=== PATIENT | female | born 1965 ===

== ENCOUNTER 2020-09-17 06:59 | Outpatient (REF) | payer OTHER, SELFPAY ==
[2020-09-17 07:25] LABS: Hematocrit 45.1 % (37-47); Hemoglobin 14.6 g/dl (12.0-16.0); Mean Corpuscular HGB Conc 32.4 g/dl (31.0-35.0); Mean Corpuscular Volume 89.7 fL (80-98); Mean Platelet Volume 8.9 fL (9.4-12.3); Platelet Count 337 X10*3/uL (160-400); Red Blood Count 5.03 X10*6/uL (4.20-5.50); Red Cell Distribution Width 12.5 % (11.0-16.0); White Blood Count 9.1 X10*3/uL (4.8-10.8)
[2020-09-17 07:45] LABS: Alanine Aminotransferase 26 U/L (0-31); Albumin Level 4.1 g/dL (3.5-5.0); Alkaline Phosphatase 63 U/L (39-117); Anion Gap 12 (12-20); Aspartate Amino Transferase 21 U/L (5-31); Bilirubin Total 0.5 mg/dL (0.0-1.0); Blood Urea Nitrogen 9 mg/dL (9-16); Calcium 9.2 mg/dL (8.4-10.2); Carbon Dioxide 27 mmol/L (22-29); Chloride 106 mmol/L (96-108); Cholesterol 166 mg/dL; Estimated Glomerular Filt Rate > 60; Glucose Fasting 89 mg/dL (60-99); HDL Cholesterol 50 mg/dL; LDL Cholesterol Calculated 100 mg/dl; Potassium 4.3 mmol/l (3.3-5.1); Sodium 141 mmol/L (135-145); Total Protein 6.9 g/dL (6.5-8.0); Triglycerides 83 mg/dL
== END 2020-09-17 07:00 | disposition home or self-care (01) ==
LOC: HO.LAB 06:59
PROVIDERS: Visit Provider Internal Medicine
DX: J30.9 Allergic rhinitis, unspecified (principal); E78.5 Hyperlipidemia, unspecified
CPT/HCPCS: 36415; 80053; 80061; 85027

== ENCOUNTER 2020-12-03 12:56 | Outpatient (REF) | payer OTHER, SELFPAY ==
--- NOTE | ~2020-12-03 | MM_ITS ---
EXAMINATION: BONE DENSITOMETRY CLINICAL INDICATION: Asymptomatic menopausal state. COMPARISON: None (current study represents initial baseline exam). TECHNIQUE: Using a eventblimp DXA System (software version: 13.1) manufactured by [employer], dual-energy x-ray absorptiometry was performed of the lumbar spine and left hip. The images are of good technical quality. Summary results are attached. FINDINGS: AP SPINE L1-L2 (excluding L3 and L4): The data of L1-L4 has been changed to exclude the L3 and L4 vertebral bodies, because degenerative changes at these levels may cause overestimation of lumbar spine density. BMD 1.272 g/cm2, Z-score 1.3, T-score 0.9, normal. LEFT FEMUR, NECK: BMD 1.065 g/cm2, Z-score 0.9, T-score 0.2, normal. LEFT FEMUR, TOTAL: BMD 1.116 g/cm2, Z-score 1.2, T-score 0.9, normal. IDENTIFIED RISK FACTORS: Menopause. HISTORY OF FRACTURE: Arm. MEDICATIONS: None listed. MM/XR DEXA axial skeleton IMPRESSION: 1. DIAGNOSIS: Normal bone density based on the lowest T-score value of 0.2 in the femoral neck applying World Health Organization criteria. 2. 10-YEAR FRACTURE RISK PREDICTION, FRAX: Major osteoporotic fracture (clinical spine, forearm, hip or shoulder) 2.4%. Hip fracture 0.0%. 3. Treatment Recommendations: NOF guidelines recommend consideration for treatment in postmenopausal women and men age 50 and older presenting with the following: -A hip or vertebral (clinical or morphometric) fracture. -T-score less than or equal to -2.5 at the femoral neck or spine after appropriate evaluation to exclude secondary causes. -Low bone mass at the hip or spine and a 10-year fracture probability by FRAX of greater than or equal to 3% for hip fracture or greater than or equal to 20% for major osteoporotic fracture based on the [place] adapted WHO algorithm. 4. Other Recommendations: All treatment decisions require clinical judgment and consideration of individual patient factors, including patient preferences, comorbidities, previous drug use, risk factors not captured in the FRAX model (e.g. frailty, falls, vitamin D deficiency, increased bone turnover, interval significant decline in bone density) and possible under or overestimation of fracture risk by FRAX. FUTURE SCAN RECOMMENDATION: People with diagnosed cases of osteoporosis or at high risk for fracture should have regular bone mineral density tests. For patients eligible for Medicare, routine testing is allowed once every 2 years. The testing frequency can be increased to one year for patients who have rapidly progressing disease, those who are receiving or discontinuing medical therapy to restore bone mass, or have additional risk factors.
--- NOTE | 2020-12-03 13:35 | ECG_ITS ---
Hook-up date: 2020-12-03 13:52:00 Duration: 24:50:00 Test Indications: TACHYCARDIA Medications: 189498 QRS complexes 11 Ventricular ectopics which represent <1 % of total QRS comp. 7 Supraventricular ectopics which represent <1 % of total QRS comp. * Paced QRS complexs which represent % of total QRS comp. VENTRICULAR ECTOPY 11 Isolated 0 Bigeminal Cycles 0 Couplets 0 Runs 0 Beats in Runs * Beats LONGEST at * BPM at :: -- * Beats FASTEST at * BPM at :: -- SUPRAVENTRICULAR ECTOPY 7 Isolated 0 Couplets 0 Runs 0 Beats in Runs * Beats LONGEST at * BPM at :: -- * Beats FASTEST at * BPM at :: -- HEART RATES 55 MIN at 03:43:30 2020-12-04 88 AVG 159 MAX at 11:35:51 2020-12-04 LONGEST RR 1.1680 secs at 05:37:21 2020-12-04 S-T LEVELS Channel 1 - 128 mm at 13:52:00 2020-12-03 - 128 mm at 13:52:00 2020-12-03 Channel 2 - 128 mm at 13:52:00 2020-12-03 - 128 mm at 13:52:00 2020-12-03 Channel 3 - 128 mm at 03:31:11 -- - 128 mm at 03:31:11 Underlying rhythm is sinus; Average ventricular rate 88/min; range 55-159/min; Very rare PVC/PACs; No sustained arrhythmias; Patient did not report any symptoms in the diary Referred By: Samina Montes Overread By: DUANE PAREDES
== END 2020-12-03 12:57 | disposition home or self-care (01) ==
LOC: HO.MAMMO 12:56
PROVIDERS: Visit Provider Internal Medicine
DX: Z13.820 Encounter for screening for osteoporosis (principal); R00.0 Tachycardia, unspecified; Z78.0 Asymptomatic menopausal state
CPT/HCPCS: 77080; 77081; 93225; 93226

== ENCOUNTER 2021-05-19 10:33 | Outpatient (REF) | payer OTHER, SELFPAY ==
--- NOTE | ~2021-05-19 | MM_ITS ---
EXAMINATION: MM SCREENING DIGITAL BREAST TOMOSYNTHESIS, BILATERAL CLINICAL INFORMATION: Screening. Asymptomatic. The lifetime risk of breast cancer based on the Tyrer-Cuzick Model is 7.2%. COMPARISON: Mammography: 05/15/2020 and studies dating back to 10/25/2013. TECHNIQUE: Digital breast tomosynthesis is performed in both the craniocaudal and mediolateral oblique views along with computer-aided detection (CAD). Synthesized 2D images are generated from the tomosynthesis. FINDINGS: The breasts are heterogeneously dense, which may obscure small masses (ACR BI-RADS breast composition Category c). There is multiplicity and bilaterality of calcifications. The left breast has a stable parenchymal pattern. There is a question of 2 new groupings of calcifications seen on mediolateral oblique projection only however on tomographic views of previous studies, these are seen to have been present and appear to be vascular calcifications. No abnormal right breast dominant mass is identified. MM/MM tomosynthesis screening BI IMPRESSION: There are no significant changes from prior study. ASSESSMENT: BI-RADS 2: Benign. RECOMMENDATION: Routine annual mammography screening. This patient's information was entered into a reminder system with a target due date for their next mammogram.
== END 2021-05-19 10:34 | disposition home or self-care (01) ==
LOC: HO.MAMMO 10:33
PROVIDERS: PCP Internal Medicine; Visit Provider Internal Medicine
DX: Z12.31 Encounter for screening mammogram for malignant neoplasm of breast (principal)
CPT/HCPCS: 77063; 77067

== ENCOUNTER → 2021-09-03 09:33 | Outpatient (BNVA) | payer OTHER, SELFPAY | PROVIDERS: PCP Internal Medicine; Visit Provider Advanced Practice Midwife ==

== ENCOUNTER 2021-10-09 09:12 | Outpatient (REF) | payer OTHER, SELFPAY ==
--- NOTE | ~2021-10-09 | XR_ITS ---
EXAMINATION: XR HAND, RIGHT XR HAND, LEFT CLINICAL INFORMATION: Pain. COMPARISON: None TECHNIQUE: PA, oblique, and lateral views of the right and left hand. FINDINGS: Right Hand: No acute fracture or dislocation. No significant joint space narrowing. Tiny marginal osteophytes at the second metacarpophalangeal joint. No osseous erosion. Tiny ossifications in the region of the triangular fibrocartilage complex measuring up to 0.2 cm. Left Hand: No acute fracture or dislocation. No joint space narrowing or marginal osteophytes. No osseous erosion. No abnormal soft tissue calcification. 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 Left Hand: Unremarkable examination.
--- NOTE | ~2021-10-09 | XR_ITS ---
EXAMINATION: XR HAND, RIGHT XR HAND, LEFT CLINICAL INFORMATION: Pain. COMPARISON: None TECHNIQUE: PA, oblique, and lateral views of the right and left hand. FINDINGS: Right Hand: No acute fracture or dislocation. No significant joint space narrowing. Tiny marginal osteophytes at the second metacarpophalangeal joint. No osseous erosion. Tiny ossifications in the region of the triangular fibrocartilage complex measuring up to 0.2 cm. Left Hand: No acute fracture or dislocation. No joint space narrowing or marginal osteophytes. No osseous erosion. No abnormal soft tissue calcification. 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 Left Hand: Unremarkable examination.
[2021-10-09 10:33] LABS: Alanine Aminotransferase 24 U/L (0-31); Albumin Level 4.3 g/dL (3.5-5.0); Alkaline Phosphatase 78 U/L (39-117); Anion Gap 11 (12-20); Aspartate Amino Transferase 21 U/L (5-31); Bilirubin Total 0.6 mg/dL (0.0-1.0); Blood Urea Nitrogen 9 mg/dL (9-16); Calcium 9.7 mg/dL (8.4-10.2); Carbon Dioxide 28 mmol/L (22-29); Chloride 106 mmol/L (96-108); Cholesterol 176 mg/dL; Estimated Glomerular Filt Rate > 60; Glucose Fasting 94 mg/dL (60-99); HDL Cholesterol 51 mg/dL; LDL Cholesterol Calculated 109 mg/dl; Potassium 4.6 mmol/L (3.3-5.1); Sodium 140 mmol/L (135-145); Total Protein 7.4 g/dL (6.5-8.0); Triglycerides 82 mg/dL
[2021-10-14 14:43] LABS: Vitamin D 25-OH, D2 <4 ng/mL; Vitamin D 25-OH, D3 18 ng/mL; Vitamin D 25-OH, Total 18 ng/mL (30-100)
== END 2021-10-09 09:13 | disposition home or self-care (01) ==
LOC: HO.LAB 09:12
PROVIDERS: Visit Provider Internal Medicine
DX: E78.5 Hyperlipidemia, unspecified (principal); E66.9 Obesity, unspecified; E55.9 Vitamin D deficiency, unspecified; M79.643 Pain in unspecified hand
CPT/HCPCS: 36415; 73130; 80053; 80061; 82306

== ENCOUNTER 2022-03-23 07:45 | Outpatient (REF) | payer OTHER, SELFPAY ==
[2022-03-23 08:55] LABS: Alanine Aminotransferase 20 U/L (0-31); Albumin Level 4.2 g/dL (3.5-5.0); Alkaline Phosphatase 72 U/L (39-117); Anion Gap 10 (12-20); Aspartate Amino Transferase 20 U/L (5-31); Bilirubin Total 0.2 mg/dL (0.0-1.0); Blood Urea Nitrogen 10 mg/dL (9-16); Calcium 9.3 mg/dL (8.4-10.2); Carbon Dioxide 26 mmol/L (22-29); Chloride 109 mmol/L (96-108); Cholesterol 162 mg/dL; Estimated Glomerular Filt Rate > 60; Glucose Fasting 98 mg/dL (60-99); HDL Cholesterol 48 mg/dL; LDL Cholesterol Calculated 99 mg/dl; Potassium 4.4 mmol/L (3.3-5.1); Sodium 141 mmol/L (135-145); Triglycerides 75 mg/dL
[2022-03-23 09:17] LABS: Vitamin D 25-OH Total 27.6 ng/mL (>30)
== END 2022-03-23 07:46 | disposition home or self-care (01) ==
LOC: HO.LAB 07:45
PROVIDERS: PCP Internal Medicine; Visit Provider Internal Medicine
DX: E55.9 Vitamin D deficiency, unspecified (principal); E78.5 Hyperlipidemia, unspecified
CPT/HCPCS: 36415; 80053; 80061; 82306

== ENCOUNTER 2022-05-28 07:33 | Outpatient (REF) | payer OTHER, SELFPAY ==
--- NOTE | ~2022-05-28 | MM_ITS ---
EXAMINATION: MM SCREENING DIGITAL BREAST TOMOSYNTHESIS, BILATERAL CLINICAL INFORMATION: Screening. Asymptomatic. The lifetime risk of breast cancer based on the Tyrer-Cuzick Model is 7%. COMPARISON: Mammography: 05/19/2021, 05/15/2020, 05/10/2019 TECHNIQUE: Digital breast tomosynthesis is performed in both the craniocaudal and mediolateral oblique views along with computer-aided detection (CAD). Synthesized 2D images are generated from the tomosynthesis. FINDINGS: There are scattered areas of fibroglandular density (ACR BI-RADS breast composition Category b). There are no significant masses, abnormal calcifications, or other abnormalities. Parenchymal pattern is similar to prior studies. There is no developing density or architectural abnormality. The axilla and skin contours are unremarkable. No significant changes. MM/MM tomosynthesis screening BI IMPRESSION: No mammographic evidence of malignancy. ASSESSMENT: BI-RADS 1: Negative RECOMMENDATION: Routine annual mammography screening. This patient's information was entered into a reminder system with a target due date for their next mammogram.
== END 2022-05-28 07:34 | disposition home or self-care (01) ==
LOC: HO.MAMMO 07:33
PROVIDERS: PCP Internal Medicine; Visit Provider Internal Medicine
DX: Z12.31 Encounter for screening mammogram for malignant neoplasm of breast (principal)
CPT/HCPCS: 77063; 77067

== ENCOUNTER → 2022-09-04 09:19 | Outpatient (BNVA) | payer OTHER, SELFPAY | PROVIDERS: PCP Internal Medicine; Visit Provider Advanced Practice Midwife | DX: N95.1 Menopausal and female climacteric states (principal) ==

== ENCOUNTER 2023-06-05 09:04 | Outpatient (REF) | payer OTHER, SELFPAY | END 2023-06-05 09:05 | disposition home or self-care (01) | LOC: HO.MAMMO 09:04 | PROVIDERS: PCP Internal Medicine; Visit Provider Internal Medicine | DX: Z12.31 Encounter for screening mammogram for malignant neoplasm of breast (principal) | CPT/HCPCS: 77063; 77067 ==

== ENCOUNTER → 2023-06-05 09:15 | Outpatient (BNV) | payer OTHER, SELFPAY | PROVIDERS: PCP Internal Medicine; Visit Provider Radiology Diagnostic Radiology | DX: Z12.31 Encounter for screening mammogram for malignant neoplasm of breast (principal) | CPT/HCPCS: 77063; 77067 ==

== ENCOUNTER 2023-09-10 09:10 | Outpatient (AMB) | payer OTHER, SELFPAY ==
--- NOTE | 2023-09-10 09:17 | A.OFFVIS_ITS ---
Intake Vital Signs 09/10/23 09:22 Height 5 ft 1 in Weight 174 lb BMI 32.9 BP 110/70 Intake Visit Reasons: Annual Intake Note: no concerns Engineering Programmer Required: Yes Engineering Programmer Language: Air Pollution Compliance Inspector Name: Sally HINES Information Interpreted: non-clinical & clinical Brusher Warp: Brusher Warp Present (Sally Gonzales) Accompanied by: Self / Same As Patient Allergies acetaminophen [Percocet] Allergy (Intermediate, Verified 09/10/23 09:24) nausea,dizziness oxycodone [Percocet] Allergy (Intermediate, Verified 09/10/23 09:24) nausea,dizziness tramadol Allergy (Intermediate, Verified 09/10/23 09:24) dizziness Post menopausal: Yes HPI HPI Comments History of Present Illness Details 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 She is doing well with no concerns. Attempting to eat a healthy diet with calcium and vitamin D and stays active with exercise. currently in hospital for cancer treatments. Denies any vaginal dryness or irritation. Last pap smear; 03/2020. Last mammogram; 05/2023. Colonoscopy is UTD. Denies any family history of breast, ovarian or colon cancer. [facility] Medical History Hand pain Mild depression Obesity (BMI 30.0-34.9) Postmenopausal Tachycardia Carpal tunnel syndrome Allergic rhinitis Constipation by delayed colonic transit Dyslipidemia Shoulder pain Surgical History History of arthroscopy of right shoulder History of repair of left rotator cuff History of tubal ligation History of Family History Mother Hypertension Osteoporosis Arthritis Father No problems noted. Social History (Updated 09/10/23 @ 09:26 by Sally Gonzales CMA) Household Members: Spouse Housing: House Alcohol intake: current Alcohol intake frequency: holidays/special occasions only Alcohol type: wine Patient Tobacco Use Status: Never used Tobacco e-Cigarette/Vaping Use: Never Used Second Hand Smoke Exposure: No service: No Current occupational status: disabled Sexually active: Yes Sexual orientation: Straight/Heterosexual Gender identity: Female Cognitive needs: No Hearing needs: No Vision needs: No Female Reproductive History Menstrual control method: permanent sterilization Total pregnancies: 4 Full term: 4 Date of last pap smear: 07/13/20 Date of Mammogram: 06/05/23 Review of Systems Const All systems reviewed & are unremarkable except as noted in HPI and below Reports as per HPI Eyes Reports no additional complaints ENT Reports no additional complaints Card Reports no additional complaints Resp Reports no additional complaints GI Reports as per HPI and Reports no additional complaints Reports as per HPI Musc Reports no additional complaints Skin/Breast Reports as per HPI Neuro Reports no additional complaints Psych Reports no additional complaints Endo Reports no additional complaints Murtaza/Lymph Reports no additional complaints Aller/Immun Reports no additional complaints Physical Exam Vital Signs: Last Vital Signs BP 110/70 09/10/23 09:22 BMI result Body Mass Index 32.9 Const General: cooperative, healthy appearing, no acute distress, well developed and alert Orientation/consciousness: patient oriented x3 HEENT Head: Yes normal to inspection Eyes General: appearance normal, both eyes and all related structures Neck Neck: Yes normal visual inspection Thyroid: Thyroid normal Chest Chest palpation & inspection: normal inspection of the chest and other (no puckering, dimpling, peau de orange, retraction, discharge, masses) Breast/axilla inspection: normal inspection of the breasts Breast/axilla palpation: normal palpation of the breasts Resp Effort & Inspection: normal respiratory effort GI Inspection: Yes normal to inspection Palpation (GI): Soft to palpation Rectal Exam - Female: deferred General: Yes bladder normal to palpation External Female Exam: normal external appearance and normal appearance of the urethra Speculum Exam - Vagina: normal appearance of the vagina, normal palpation, normal vaginal discharge and vagina atrophic Speculum Exam - Cervix: normal appearance of the cervix and normal palpation Bimanual exam- vagina & uterus: normal bimanual exam, normal palpation, uterine size normal, bladder normal to palpation, normal palpation and non-tender Bimanual Exam- Adnexa, other: no masses Skin General skin exam: no rashes or lesions noted Rashes: no rashes Neuro General: patient oriented x3 Cognition (Neuro): normal cognition Extrem General: Yes normal to inspection Psych Attitude: cooperative Thought process: Normal thought process present Assessment & Plan Assessment & Plan (1) Encounter for well woman exam with routine gynecological exam: Code(s): Z01.419 - Encounter for gynecological examination (general) (routine) without abnormal findings Plan Discussed: Current recommendations for pap smears per ASCCP guidelines. Breast awareness, periodic self breast exams and yearly mammogram. Maintain a healthy lifestyle, well balanced diet including Calcium 1,200 mg and Vitamin D 600 IU daily, and routine exercise. Contact the office with any postmenopausal bleeding. All of her questions and concerns were addressed to the best of my ability. 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 This note is constructed using voice recognition software. While every effort has been made to ensure accuracy, government affairs fellow errors may have been included. Coding Level of Care Code Est Pt Prev Care 40-64y(28962) Diagnoses Encounter for well woman exam with routine gynecological exam Z01.419
[2023-09-10 09:22] VITALS: BP 110/70; BMI 32.9
== END 2023-09-10 09:50 | disposition home or self-care (01) ==
PROVIDERS: Visit Provider Advanced Practice Midwife
DX: Z01.419 Encounter for gynecological examination (general) (routine) without abnormal findings (principal)
CPT/HCPCS: 99396

== ENCOUNTER → 2023-09-10 09:10 | Outpatient (BNVA) | payer OTHER, SELFPAY | PROVIDERS: Visit Provider Advanced Practice Midwife ==

== ENCOUNTER 2023-09-23 12:51 | Outpatient (AMB) | payer OTHER, SELFPAY ==
[2023-09-23 12:52] VITALS: BP 110/80; BMI 33.3
--- NOTE | 2023-09-23 12:52 | MHC.PC.OV ---
Vital Signs 09/23/23 12:52 Height 5 ft 1 in Weight 176 lb BMI 33.3 BP 110/80 Blood Pressure Location Lt brachial Position Sitting Intake Visit Reasons: PE Intake Note: Patient here for a physical exam Access Tech Required: No Accompanied by: Self / Same As Patient Allergies acetaminophen [Percocet] Allergy (Intermediate, Verified 09/23/23 13:03) nausea,dizziness oxycodone [Percocet] Allergy (Intermediate, Verified 09/23/23 13:03) nausea,dizziness tramadol Allergy (Intermediate, Verified 09/23/23 13:03) dizziness Medication List - Last Reconciled 09/23/23 by Samina Montes MD arm brace (Wrist Brace Large) Use 1 wrist brace bilaterally once a day as needed atorvastatin 40 mg PO DAILY blood pressure monitor As directed bupropion HCl 150 mg PO QAM 90 days calcitriol 0.5 mcg PO DAILY 90 days cholecalciferol (vitamin D3) 25 mcg PO DAILY 90 days ibuprofen 800 mg PO TID PRN 90 days loratadine 10 mg PO DAILY PRN 90 days montelukast 10 mg PO BEDTIME 90 days sennosides (senna) 17.2 mg (2 x 8.6 mg) PO BEDTIME PRN 90 days Tobacco use date assessed: 09/23/23 Dental Screening Dental Screen Date: 09/23/23 Did you have a dental visit in the last 12 months?: Yes Did you have a dental problem in the last 6 months where you did not have access to dental care?: No Was dental information given to patient?: Patient has dentist HPI HPI Comments History of Present Illness Details This is a 58-year-old female that comes for physical exam. Mammogram done 2022 was normal. Pap smear done 2019. Last colonoscopy was done 2018 and showed tubular adenoma. Will be referred to Gastroenterology for a possible another colonoscopy. Daughter has congestive heart failure and she has a murmur. Has mild major depression and will start on SSRIs. [facility] Medical History Hand pain Mild depression Obesity (BMI 30.0-34.9) Postmenopausal Tachycardia Carpal tunnel syndrome Allergic rhinitis Constipation by delayed colonic transit Dyslipidemia Shoulder pain Surgical History History of arthroscopy of right shoulder History of repair of left rotator cuff History of tubal ligation History of Family History (Updated 09/23/23 @ 13:09 by Samina Montes MD) Mother Hypertension Osteoporosis Arthritis Father No problems noted. Social History Household Members: Spouse Housing: House Alcohol intake: current Alcohol intake frequency: holidays/special occasions only Alcohol type: wine Patient Tobacco Use Status: Never used Tobacco e-Cigarette/Vaping Use: Never Used Second Hand Smoke Exposure: No service: No Current occupational status: disabled Sexual orientation: Straight/Heterosexual Gender identity: Female Cognitive needs: No Hearing needs: No Vision needs: No Questionnaire PHQ-9 Over the last 2 weeks, how often have you been bothered by any of the following problems? 1. Little interest or pleasure in doing things: several days 2. Feeling down, depressed, or hopeless: several days 3. Trouble falling or staying asleep, or sleeping too much: nearly every day 4. Feeling tired or having little energy: nearly every day 5. Poor appetite or overeating: several days 6. Feeling bad about yourself - or that you are a failure or have let yourself or your family down: not at all 7. Trouble concentrating on things, such as reading the newspaper or watching television: not at all 8. Moving or speaking so slowly that other people could have noticed. Or the opposite - being so fidgety or restless that you have been moving around a lot more than usual: several days 9. Thoughts that you would be better off or of hurting yourself in some way: not at all Total score: 10 Depression Screening Interpretation: Positive Depression Screening Follow-up: Existing condition Depression Screening Done: Yes 26060 - PHQ-9 Billing: Yes Source: Developed by Drs. Luc Regalado, Sharon Jay, Jonatan Guevara and colleagues, with an educational anastacio from [employer]. Thrive Questionnaire Date Thrive assessed: 09/07/22 ABHIJIT-7 AMB Questionnaire ABHIJIT-7 Date ABHIJIT - 7 assessed: 09/23/23 Feeling nervous, anxious, or on edge: 3 = Nearly every day Not being able to stop or control worryin = Several days Worrying too much about different things: 3 = Nearly every day Trouble relaxin = Not at all Being so restless that it is hard to sit still: 0 = Not at all Becoming easily annoyed or irritable: 0 = Not at all Feeling afraid as if something awful might happen: 1 = Several days Total ABHIJIT-7 score (0-4 normal; 5-9 mild; 10-14 moderate; 15-21 severe): 8 Source: Developed by Drs. Luc Regalado, Sharon Jay, Jonatan Guevara and colleagues, with an educational anastacio from [employer]. ABHIJIT-7 Assessment Billing ABHIJIT-7 Assessment Tool: ABHIJIT-7 Assessment 87807 Review of Systems Const All systems reviewed & are unremarkable except as noted in HPI and below Eyes Reports no additional complaints, Denies change in vision and Denies other visual disturbances Card Denies chest pain at rest, Denies chest pain with activity, Denies edema, Denies irregular heart rhythm, Denies claudication, Denies dyspnea, Denies dyspnea on exertion, Denies orthopnea, Denies paroxysmal nocturnal dyspnea and Denies slow heart rate Resp Denies cough, Denies dyspnea and Denies dyspnea on exertion GI Denies abdominal pain, Denies change in bowel habits, Denies excessive flatus, Denies nausea and Denies vomiting Denies urinary incontinence, Denies urinary hesitancy and Denies urinary urgency Musc Denies abnormal gait, Denies atrophy, Denies deformity and Denies limited range of motion Skin/Breast Denies bleeding lesions, Denies changing lesions and Denies rash Neuro Denies abnormal gait, Denies behavioral changes, Denies confusion and Denies lack of coordination Psych Denies behavioral changes and Denies confusion Physical exam (Primary Care) Vital Signs: Last Vital Signs BP 110/80 09/23/23 12:52 BMI result Body Mass Index 33.3 Tobacco/Smoking Status: Tobacco use Status Tobacco use date assessed 09/23/23 09/23/23 12:59 Patient Tobacco Use Status Never used Tobacco 09/23/23 12:59 e-Cigarette/Vaping Use Never Used 09/23/23 12:59 PHQ-9: PHQ-9 Score PHQ-9: Total score 10 09/23/23 13:11 Depression Screening Interpretation: Positive Depression Screening Follow-up: Existing condition Thrive Assessment: Date of Thrive Assessment Date Thrive assessed 09/07/22 09/23/23 12:59 Const General: No confusion Orientation/consciousness: patient oriented x3 and No confusion HENMT Head: Yes normal to inspection, Yes normocephalic and Yes atraumatic Ears: external ears normal Eyes General: appearance normal, both eyes and all related structures Eyelids: Yes eyelids normal Conjunctivae: conjunctivae normal Neck Neck: Yes normal visual inspection and Yes supple Resp Effort & Inspection: normal respiratory effort Auscultation: clear to auscultation bilaterally Cardio Jugular venous distension: no JVD Rate: regular rate Rhythm: regular rhythm Heart sounds: Murmur heart sound present GI Inspection: Yes normal to inspection Palpation (GI): Soft to palpation and nontender Auscultation: normal bowel sounds Skin General skin exam: no rashes or lesions noted Neuro General: patient oriented x3, no focal motor deficits and No confusion Extrem General: Yes full ROM Psych Appearance: grossly normal Assessment and Plan Assessment & Plan (1) Physical exam: Code(s): Z00.00 - Encounter for general adult medical examination without abnormal findings Plan: Repeat in a year. (2) Mild major depression: Code(s): F32.0 - Major depressive disorder, single episode, mild Plan: Continue SSRIs Orders: Orders Lipid Panel Today E78.5 - Hyperlipidemia, unspecified Comprehensive [place]. Panel Fast Today Z00.00 - Encounter for general adult medical examination without abnormal findings Vitamin D 25-OH Total Today E55.9 - Vitamin D deficiency, unspecified CA echo transthoracic complete Today R01.1 - Cardiac murmur, unspecified, Z82.49 - Family history of ischemic heart disease and other diseases of the circulatory system Referrals Open Access Screening Colonoscopy Referral Z12.11 - Encounter for screening for malignant neoplasm of colon Medications: New sertraline 25 mg PO DAILY 30 tabs 0RF 30 days F32.0 - Major depressive disorder, single episode, mild Refilled cholecalciferol (vitamin D3) 25 mcg PO DAILY 90 caps 1RF 90 days ibuprofen 800 mg PO TID PRN 270 tabs 3RF fever or pain 90 days M79.643 - Pain in unspecified hand Coding Level of Care Code Est Pt Prev Care 40-64y(48398) Diagnoses Physical exam Z00.00 Mild major depression F32.0 Additional Codes ABHIJIT-7 Assessment Billing - ABHIJIT-7 Assessment Tool: ABHIJIT-7 Assessment 22486 ([id number]) Time Spent (min) 31
== END 2023-09-23 13:22 | disposition home or self-care (01) ==
PROVIDERS: PCP Internal Medicine; Visit Provider Internal Medicine
DX: Z00.00 Encounter for general adult medical examination without abnormal findings (principal); F32.0 Major depressive disorder, single episode, mild
CPT/HCPCS: 96127; 99396

== ENCOUNTER → 2023-10-19 07:42 | Outpatient (REF) | payer OTHER, SELFPAY ==
--- NOTE | 2023-10-19 07:48 | CA_ITS ---
Transthoracic Echocardiogram Patient (Last, First, Middle): Bibi Gillespie M Gender: Female Date of : 1965 Age: 58 Procedure Date: 10/19/2023 Procedure Type: Transthoracic Echocardiogram Location: OP Height: 154.94 cm Weight: 79.83 kg BSA: 1.79 m2 Heart Rate: 85 bpm BP: 110 / 80 mmHg Supervisor Sewer System: SB Referring MD: Samina Montes MD Newspaper Reporter: Ronnell Fischer MD Symptoms: R01.1 - Cardiac murmur, unspecified Study Quality: Adequate ECG Rhythm: Sinus Conclusions: - Normal study Findings Left Ventricle Normal left ventricular size, thickness, and systolic function. The visually estimated ejection fraction is between 55-60%. Spectral Doppler is indicative of a normal filling pattern. Right Ventricle Normal right ventricular cavity size and systolic function. Atria Both atria are normal in size. Interatrial shunt cannot be excluded. Aortic Valve Normal aortic valve structure and function. There is no aortic valve stenosis. There is no aortic valve regurgitation. Mitral Valve Normal mitral valve structure and function. There is trace mitral valve regurgitation. There is no mitral valve stenosis. Pulmonic Valve The pulmonic valve is likely normal. Tricuspid Valve Normal tricuspid valve structure. There is trace tricuspid valve regurgitation. The right ventricular systolic pressure is normal. The right ventricular systolic pressure is 19 mmHg. Normal right atrial pressure. There is no evidence of pulmonary hypertension. Great Vessels All visible segments of the aorta are normal in size. The pulmonary artery was not well visualized. There is no dilatation of the ascending aorta measuring 2.80 cm. Venous The inferior vena cava is normal in size and collapses greater than 50% with inspiration. Pericardium/Pleural There is no evidence of pericardial effusion. Prior Study Comparison No prior study available for comparison. Measurements 2D Linear Measurements IVSd: 0.77 0.6-0.9/0.6-1.0 cm LVIDd: 5.02 3.9-5.3/4.2-5.9 cm LVIDd Index: 2.80 2.4-3.2/2.2-3.1 cm/m2 LVIDs: 3.27 2.0-3.6 cm LVPWd: 0.68 0.7-1.1 cm LA Diam: 3.30 2.7-3.8/3.0-4.0 cm LAIDs Index: 1.84 1.5-2.3 cm/m2 LV Mass: 149.19 67-162/88-224 g LV Mass Index: 83.35 43-95/49-115 g/m2 LVOT Diam: 2.00 3.0+(-)1.3 cm 2D Systolic Function EF 4C: 52.10 >55% EF 2C: 59.40 >55% EF BiP: 55.10 >55% Mitral Valve MV Pk E: 0.77 MV PK A: 0.55 MV Decel Time: 158.00 E/A: 1.40 E'Lateral: 9.68 E'Medial: 8.59 E/E' Med: 9.00 E/E' Lat: 8.00 PHT: 46.00 MVA PHT: 4.78 Decel [place]: 4.87 Aortic Valve AoV Pk Sacha: 1.11 AoV Pk Grad: 5.00 [place]: 2.55 LVOT LVOT Pk Sacha: 0.90 LVOT Mn Sacha: 0.61 LVOT VTI: 0.20 LVOT Pk Grad: 3.00 LVOT Mn Grad: 2.00 LVOT Diam: 2.00 LVOT Area: 3.14 Diastolic Function MV Pk E: 0.77 MV Pk A: 0.55 E/A: 1.40 E'Medial: 8.59 E/E' Med: 9.00 E' Laterial: 9.68 E/E' Lat: 8.00 Right Ventricle TAPSE (mm): 20.40 TVS' Sacha: 11.40 Tricuspid Valve TR Pk Sacha: 1.98 TR Pk Grad: 16.00 RA Press: 3.00 RVSP: 19.00 Great Vessels Aorta Sinus of Valsalva: 2.60 2.0-3.5 cm Ao Asc: 2.80 2.1-3.4 cm Pulmonary Valve PV Pk Sacha: 0.95 Peak PV Grad: 4.00 Updated in Other Vendor System with Status of Final Ronnell Fischer MD electronically signed on 10/19/2023 12:24:23 PM with status of Final
[2023-10-19 09:06] LABS: Alanine Aminotransferase 29 U/L (0-31); Albumin Level 3.9 g/dL (3.5-5.0); Alkaline Phosphatase 71 U/L (39-117); Anion Gap 12 (12-20); Aspartate Amino Transferase 26 U/L (5-31); Bilirubin Total 0.4 mg/dL (0.0-1.0); Blood Urea Nitrogen 8 mg/dL (9-16); Calcium 9.3 mg/dL (8.4-10.2); Carbon Dioxide 29 mmol/L (22-29); Chloride 107 mmol/L (96-108); Cholesterol 158 mg/dL (<200); Estimated Glomerular Filt Rate > 60; Glucose Fasting 93 mg/dL (60-99); HDL Cholesterol 50 mg/dL (>40); LDL Cholesterol Calculated 88 mg/dL (<100); Potassium 3.7 mmol/L (3.3-5.1); Sodium 144 mmol/L (135-145); Total Protein 7.1 g/dL (6.5-8.0); Triglycerides 100 mg/dL (<150)
[2023-10-19 09:26] LABS: Vitamin D 25-OH Total 17.9 ng/mL (>30)
== END ==
LOC: HO.CARD 07:42
PROVIDERS: PCP Internal Medicine; Visit Provider Internal Medicine
DX: R01.1 Cardiac murmur, unspecified (principal); E55.9 Vitamin D deficiency, unspecified; E78.5 Hyperlipidemia, unspecified; Z82.49 Family history of ischemic heart disease and other diseases of the circulatory system; Z00.00 Encounter for general adult medical examination without abnormal findings
CPT/HCPCS: 36415; 80053; 80061; 82306; 93306

== ENCOUNTER → 2023-10-19 07:48 | Outpatient (BNV) | payer OTHER, SELFPAY | PROVIDERS: PCP Internal Medicine; Visit Provider Internal Medicine Cardiovascular Disease | DX: R01.1 Cardiac murmur, unspecified (principal) | CPT/HCPCS: 93306 ==

== ENCOUNTER 2024-04-24 10:47 | Day surgery (SDC) | payer OTHER, SELFPAY ==
--- NOTE | 2024-04-24 09:28 | P.CONAN_ITS ---
FORM[facility]LY [facility] Active Problems Active Problems: All Active Problems Mild major depression (Acute) Family history of CHF (congestive heart failure) (Acute) Murmur (Acute) Hypovitaminosis D (Acute) Elevated blood pressure reading (Acute) Left hand pain (Acute) Bunion, right (Acute) Trigger finger, left ring finger (Acute) Physical exam (Acute) Hand pain (Acute) Mild depression (Acute) Obesity (BMI 30.0-34.9) (Acute) Postmenopausal (Acute) Tachycardia (Acute) Carpal tunnel syndrome (Acute) Allergic rhinitis (Acute) Constipation by delayed colonic transit (Acute) Dyslipidemia (Acute) Shoulder pain (Acute) Past Medical History Medical History (Updated 09/23/23 @ 13:22 by Samina Montes MD) Hand pain Mild depression Obesity (BMI 30.0-34.9) Postmenopausal Tachycardia Carpal tunnel syndrome Allergic rhinitis Constipation by delayed colonic transit Dyslipidemia Shoulder pain Family History Family History (Updated 09/23/23 @ 13:09 by Samina Montes MD) Mother Hypertension Osteoporosis Arthritis Father No problems noted. Family history of problems with anesthesia: No Surgical History Surgical History (Updated 04/24/24 @ 11:07 by Roseann Quarles RN) Hx of colonoscopy History of arthroscopy of right shoulder History of repair of left rotator cuff History of tubal ligation History of History of Problems with Anesthesia: No Social History Social History Household Members: Spouse Housing: House Alcohol intake: current Alcohol intake frequency: does not drink Alcohol type: wine Patient Tobacco Use Status: Never used Tobacco e-Cigarette/Vaping Use: Never Used Second Hand Smoke Exposure: No Advance Directives: No Advance Directives Information Provided: Yes service: No Current occupational status: disabled Sexual orientation: Straight/Heterosexual Gender identity: Female Cognitive needs: No Hearing needs: No Vision needs: No Meds Allergies Allergy/AdvReac Type Severity Reaction Status Date / Time acetaminophen [Percocet] Allergy Intermediate nausea,dizz Verified 09/23/23 13:03 iness oxycodone [Percocet] Allergy Intermediate nausea,dizz Verified 09/23/23 13:03 iness tramadol Allergy Intermediate dizziness Verified 09/23/23 13:03 Active Medications: Current Medications Lactated Ringer's (Lr) 1,000 mls @ 50 mls/hr IVCONT .Q20H JAQUI Exam Airway Mallampati Class: II TM Dist: >3cm Neck ROM: Full Heart: rrr Lungs: cta Assessment and Plan Assessment Anesthesia Assessment: Anesthesia Plan Discussed and Chart Reviewed Final Anesthetic Review Family History of Problems with Anesthesia: No History of Problems with Anesthesia: No NPO: Yes ASA Class: II Final Preanesthetic Review: No Changes in Pt Med Stat, Meds/Allgs Chart Reviewed and Consent Obtained/Reviewed Patient Risk: Low Procedure Risk: Low Anesthetic Plan Anesthetic Plan: MAC: Disposition: Standard PACU
[2024-04-24 10:42] VITALS: BMI 33.7
[2024-04-24 10:57] VITALS: BP 131/69; PULSE 102; RESP 19; TEMP 36.9; O2SAT 96
[2024-04-24] MEDS: Lactated Ringers 1,000 ML 50 ML IVCONT (11:07)
--- NOTE | 2024-04-24 12:40 | MHC.SHP ---
Pre-Procedural Eval Section A - 24 Hr Update-Section A only Date of Service: 04/24/24 The patient is an INPATIENT: No The patient has been examined within 24 hours of the surgical procedure. The History & Physical has been completed within 30 days and I have reviewed it.: No Section B - Complete if H&P > 30 days Chief Complaint: Surveillance for colon polyps Relevant Family History (Specify if Yes): No Relevant Social History: None Present Medications: see Short Stay Collaborative assessment Medical History: Significant History (Hand pain Mild depression Obesity (BMI 30.0-34.9) Postmenopausal Tachycardia Carpal tunnel syndrome Allergic rhinitis Constipation by delayed colonic transit Dyslipidemia Shoulder pain) History of Previous Operations: Relevant previous surgery/procedure and date(s) (History of arthroscopy of right shoulder History of repair of left rotator cuff History of tubal ligation History of ) Allergies: Allergies Allergy/AdvReac Type Severity Reaction Status Date / Time acetaminophen [Percocet] Allergy Intermediate nausea,dizz Verified 09/23/23 13:03 iness oxycodone [Percocet] Allergy Intermediate nausea,dizz Verified 09/23/23 13:03 iness tramadol Allergy Intermediate dizziness Verified 09/23/23 13:03 Review of Systems Sugical H&P ROS: Negative: Constitution, Cardiovascular, Respiratory and Gastrointestinal Exam Surgical H&P Exam: Normal: Heart, Normal: Lungs and Normal: Abdomen Plan Diagnosis/Plan: Change (proceed with colonoscopy) I have reviewed the history and physical and performed a pertinent physical examination on my patient. No changes have occurred unless specified. Time Spent With Patient Time: Total time managing care of this patient today ____ minutes.
[2024-04-24 13:42] VITALS: BP 99/56; PULSE 100; RESP 16; TEMP 36.8; O2SAT 97
--- NOTE | 2024-04-24 13:42 | P.OPN-COLO_ITS ---
Colonoscopy Operative Note Operative Note Date of Service: 04/24/24 Narrative: COLONOSCOPY TILL CECUM Pre-op diagnosis: Surveillance for colon polyps. Post-op diagnosis:? Melanosis Coli, Diverticulosis, hemorrhoids Endoscopist:? Mathew Amin MD Anesthesia:?MAC Consent: Indications for the procedure and potential complications of bleeding, perforation, reaction to medications and missed diagnosis were discussed with the patient and informed consent was obtained. Instrument: Olympus PCF H 190 L variable stiffness pediatric colonoscope Monitoring: Vital signs and clinical assessment, intermittent blood pressure monitoring, continuous EKG monitoring, Pulse oximetry and Carbon Dioxide monitoring were done throughout the procedure. Please see anesthesia flowsheet. Colon withdrawl time was 16 minutes. Procedure: The patient was placed in the left lateral decubitis position and pre-procedure medications were administered. After a digital rectal examination of the ano-rectum, the video colonoscope was inserted into the rectum and advanced through the colon to the cecum. The colonoscope was slowly withdrawn in a retrograde panoramic fashion and the colon mucosa was carefully examined including a retroflexed view of the rectum. Findings and interventions are described below. Procedure Difficulty: without difficulty Findings: Terminal Ileum: Not evaluated Cecum: Mild melanosis coli throughout the entire colon Ascending Colon: Mild melanosis coli throughout the entire colon Transverse Colon: Mild melanosis coli throughout the entire colon Descending Colon: Mild melanosis coli throughout the entire colon Moderate diverticulosis Sigmoid Colon: Mild melanosis coli throughout the entire colon Moderate diverticulosis Rectum: Normal Ano-rectum: Moderate internal hemorrhoids Colon preparation: Excellent after some irrigation. [place] Bowel Preparation Scale Right colon; 3 Transverse colon: 3 Left colon; 3 (0 = Unprepared colon segment with mucosa not seen due to solid stool that cannot be cleared. 1 = Portion of mucosa of the colon segment seen, but other areas of the colon se gment not well seen due to staining, residual stool and/or opaque liquid. 2 = Minor amount of residual staining, small fragments of stool and/or opaque liquid, but mucosa of colon segment seen well. 3 = Entire mucosa of colon segment seen well with no residual staining, small fragments of stool or opaque liquid) Impression and Post Procedure Diagnosis: Colonoscopy Findings: No polyps were detected Mild melanosis coli throughout the entire colon Moderate diverticulosis seen in the left colon Moderate hemorrhoids on retroflexed exam. Plan: Repeat Colonoscopy in 5 years due to a history of adenomatous colon polyps. Above findings were reviewed with the patient and relevant handouts were given and the discharge area.
[2024-04-24 13:57] VITALS: BP 109/71; PULSE 98; RESP 18; TEMP 36.8; O2SAT 100
== END 2024-04-24 14:12 | disposition home or self-care (01) ==
PROVIDERS: PCP Internal Medicine; Visit Provider Internal Medicine Gastroenterology
PROC: 0DJD8ZZ Inspection of Lower Intestinal Tract, Via Natural or Artificial Opening Endoscopic (ICD-10-PCS; CPT 45378; principal; 2024-04-24 12:40)
DX: Z12.11 Encounter for screening for malignant neoplasm of colon (principal); Z86.010 Personal history of colon polyps; K63.89 Other specified diseases of intestine; K57.30 Diverticulosis of large intestine without perforation or abscess without bleeding; K64.8 Other hemorrhoids; K59.01 Slow transit constipation; F32.0 Major depressive disorder, single episode, mild; J30.9 Allergic rhinitis, unspecified; R00.0 Tachycardia, unspecified; R01.1 Cardiac murmur, unspecified; E78.5 Hyperlipidemia, unspecified; E66.9 Obesity, unspecified; Z68.33 Body mass index [BMI] 33.0-33.9, adult; Z79.1 Long term (current) use of non-steroidal anti-inflammatories (NSAID); Z79.899 Other long term (current) drug therapy; Z88.5 Allergy status to narcotic agent; Z98.890 Other specified postprocedural states
CPT/HCPCS: G0105; J2704

== ENCOUNTER → 2024-04-24 10:47 | Outpatient (BNV) | payer OTHER, SELFPAY | PROVIDERS: PCP Internal Medicine; Visit Provider Internal Medicine Gastroenterology | DX: Z12.11 Encounter for screening for malignant neoplasm of colon (principal); K63.89 Other specified diseases of intestine; K57.90 Diverticulosis of intestine, part unspecified, without perforation or abscess without bleeding; K64.8 Other hemorrhoids | CPT/HCPCS: G0121 ==

== ENCOUNTER 2024-06-10 08:21 | Outpatient (REF) | payer OTHER, SELFPAY ==
--- NOTE | ~2024-06-10 | MM_ITS ---
EXAMINATION: MM SCREENING DIGITAL BREAST TOMOSYNTHESIS, BILATERAL CLINICAL INFORMATION: Screening. Asymptomatic. COMPARISON: Mammography: Comparison is made with available priors TECHNIQUE: Digital breast mammography with tomosynthesis is performed in both the craniocaudal and mediolateral oblique views along with computer-aided detection (CAD). FINDINGS: There are scattered areas of fibroglandular density (ACR BI-RADS breast composition Category b). There are no significant masses, abnormal calcifications, or other abnormalities. MM/MM tomosynthesis screening BI IMPRESSION: No mammographic evidence of malignancy. ASSESSMENT: BI-RADS BI-RADS 1 - Negative RECOMMENDATION: Routine annual mammography screening. 1 year F/U This examination should not preclude the clinical evaluation of a suspicious palpable abnormality. This patient's information was entered into a reminder system with a target due date for their next mammogram. Electronically signed by: Meg Hidalgo DO 06/22/2024 10:01 PM JIGNESH
== END 2024-06-10 08:22 | disposition home or self-care (01) ==
LOC: HO.MAMMO 08:21
PROVIDERS: PCP Internal Medicine; Visit Provider Internal Medicine
DX: Z12.31 Encounter for screening mammogram for malignant neoplasm of breast (principal)
CPT/HCPCS: 77063; 77067

== ENCOUNTER → 2024-06-10 08:30 | Outpatient (BNV) | payer OTHER, SELFPAY | PROVIDERS: PCP Internal Medicine; Visit Provider Internal Medicine | DX: Z12.31 Encounter for screening mammogram for malignant neoplasm of breast (principal) | CPT/HCPCS: 77063; 77067 ==

== ENCOUNTER 2024-08-14 12:30 | Outpatient (AMB) | payer OTHER, SELFPAY ==
--- NOTE | 2024-08-14 12:32 | MHC.PC.OV ---
Vital Signs 08/14/24 12:33 Height 5 ft 1 in Weight 171 lb BMI 32.3 BP 126/72 Blood Pressure Location Lt brachial Position Sitting Intake Visit Reasons: follow up Intake Note: Patient here for a follow up Returned Case Inspector Required: No Accompanied by: Self / Same As Patient Allergies acetaminophen [Percocet] Allergy (Intermediate, Verified 08/14/24 12:51) nausea,dizziness oxycodone [Percocet] Allergy (Intermediate, Verified 08/14/24 12:51) nausea,dizziness tramadol Allergy (Intermediate, Verified 08/14/24 12:51) dizziness Medication List - Last Reconciled 08/14/24 by Samina Montes MD arm brace (Wrist Brace Large) Use 1 wrist brace bilaterally once a day as needed atorvastatin 40 mg PO DAILY blood pressure monitor As directed bupropion HCl XL 150 mg PO QAM 90 days cholecalciferol (vitamin D3) 25 mcg PO DAILY 90 days loratadine 10 mg PO DAILY PRN 90 days sertraline 25 mg PO DAILY 30 days Tobacco use date assessed: 09/23/23 Dental Screening Dental Screen Date: 08/14/24 Did you have a dental visit in the last 12 months?: No Did you have a dental problem in the last 6 months where you did not have access to dental care?: No Was dental information given to patient?: Patient has dentist [facility] Medical History (Updated 08/14/24 @ 13:11 by Samina Montes MD) Hand pain Mild depression Obesity (BMI 30.0-34.9) Postmenopausal Tachycardia Carpal tunnel syndrome Allergic rhinitis Constipation by delayed colonic transit Dyslipidemia Shoulder pain Surgical History Hx of colonoscopy History of arthroscopy of right shoulder History of repair of left rotator cuff History of tubal ligation History of Family History Mother Hypertension Osteoporosis Arthritis Father No problems noted. Social History (Updated 08/14/24 @ 12:55 by Samina Montes MD) Household Members: Spouse Housing: House Alcohol intake: current Alcohol intake frequency: holidays/special occasions only Alcohol type: wine Patient Tobacco Use Status: Never used Tobacco e-Cigarette/Vaping Use: Never Used Second Hand Smoke Exposure: No service: No Current occupational status: disabled Sexual orientation: Straight/Heterosexual Gender identity: Female Cognitive needs: No Hearing needs: No Vision needs: No Questionnaire Thrive Questionnaire Date Thrive assessed: 09/07/22 ABHIJIT-7 AMB Questionnaire ABHIJIT-7 Date ABHIJIT - 7 assessed: 09/23/23 Source: Developed by Drs. Luc Regalado, Sharon Jay, Jonatan Guevara and colleagues, with an educational anastacio from [employer]. Review of Systems Const Details: - Musculoskeletal: Reports lumbar tenderness, left shoulder pain. - Cardiovascular: Denies any chest pain. - Psychiatric: Reports increased anxiety and stress-related eating. Physical exam (Primary Care) Vital Signs: Last Vital Signs BP 126/72 08/14/24 12:33 BMI result Body Mass Index 32.3 Tobacco/Smoking Status: Tobacco use Status Tobacco use date assessed 09/23/23 08/14/24 12:38 Patient Tobacco Use Status Never used Tobacco 08/14/24 12:38 e-Cigarette/Vaping Use Never Used 08/14/24 12:38 Thrive Assessment: Date of Thrive Assessment Date Thrive assessed 09/07/22 08/14/24 12:38 Const Other: General: No confusion Neck: Normal visual inspection and Yes supple, with movement in the lower side Respiratory: Normal respiratory effort, clear to auscultation bilaterally Cardiovascular: No jugular venous distension, regular rate, regular rhythm, S1 normal heart sound present and S2 normal heart sound present Neurology: Patient oriented x3, no focal motor deficit Extremities: Full ROM, left shoulder tenderness Psychology: Grossly normal, with increased anxiety and depression noted Office Procedures Flu Questionnaire Does the patient have a severe egg allergy?: No Immunizations Fluarix Triv [id number] (PF) 45 mcg (15 mcg x 3)/0.5 mL IM syringe Performing Provider: Samina Montes MD [place] [facility] [place] [facility] [place] [facility] Documented (not given) by: FLORA Chi on 08/14/24 12:43 Reason Not Given: Patient Refused Coding Level of Care Code Est Pt Level 4 (03004) Complex EM visit Add On G2211 Diagnoses Left shoulder pain M25.512 Cervical radiculopathy M54.12 Lumbar pain M54.50 Mild major depression F32.0 Dyslipidemia E78.5 ABHIJIT (generalized anxiety disorder) F41.1 Time Spent (min) 21 Assessment & Plan Assessment & Plan (1) Left shoulder pain: Code(s): M25.512 - Pain in left shoulder Category: Medical (2) Cervical radiculopathy: Code(s): M54.12 - Radiculopathy, cervical region Category: Medical (3) Lumbar pain: Code(s): M54.50 - Low back pain, unspecified Category: Medical (4) Mild major depression: Code(s): F32.0 - Major depressive disorder, single episode, mild Category: Medical (5) Dyslipidemia: Code(s): E78.5 - Hyperlipidemia, unspecified Category: Medical (6) ABHIJIT (generalized anxiety disorder): Code(s): F41.1 - Generalized anxiety disorder Category: Medical Plan - Arrange fasting laboratory tests to accompany the upcoming physical exam - Consider referring for ortho evaluation of the neck. - XR of left shoulder and lumbar spine ordered. Patient was informed and verbally consented to the use of an ambient scribe for clinic note documentation during this visit. I discussed with the patient the conclusions and plans regarding her current pain management, specifically the necessity of imaging for the neck, shoulder, and lumbar area to further evaluate possible cervical radiculopathy. We reviewed the safety and possible surgical interventions needed, should imaging indicate structural issues not amendable to conservative management. With respect to her mental health, I acknowledged the stressors she?s facing and agreed to increase her sertraline dosage to better manage her symptoms, recognizing the potential impact of her current life circumstances. The importance of proceeding with routine osteoporosis screening and having blood tests done ahead of her next visit were emphasized, as they facilitate appropriate monitoring of her chronic conditions and aid in her overall care plan. Orders: Orders XR DEXA axial skeleton Today Z78.0 - Asymptomatic menopausal state Lipid Panel Today E78.5 - Hyperlipidemia, unspecified Comprehensive Met. Panel Today M54.12 - Radiculopathy, cervical region Complete Blood Count Auto Diff Today M54.12 - Radiculopathy, cervical region Influenza [id number] Immunization Today Z23 - Encounter for immunization XR shoulder LT min 2V Today M25.512 - Pain in left shoulder XR lumbar spine 2-3V Today M54.50 - Low back pain, unspecified Referrals Orthopedics Referral M54.12 - Radiculopathy, cervical region Medications: New sertraline 50 mg PO DAILY 90 days 90 tabs 1RF F32.0 - Major depressive disorder, single episode, mild Discontinued sertraline Discontinued Reason: Patient Completed Course 25 mg PO DAILY 30 days 30 tabs 0RF F32.0 - Major depressive disorder, single episode, mild Patient Instructions: - Increase sertraline dosage to 50 mg as directed to help with depression and anxiety symptoms. - Schedule and complete the recommended imaging for neck, shoulder, and lower back. - Arrange and complete laboratory tests a week before your upcoming physical exam. - Continue taking prescribed medications and report any side effects or new symptoms. - Maintain an open line of communication for any worsening of symptoms.
--- OUTSIDE RECORDS SUMMARY | 2024-08-14 12:32 | XMS_ITS | Patient Health Record ---
Author Organization [facility] Address [address] [facility] [place] [address] Care Team Providers Care Software Support Specialist Name Role Phone Samina Alexis MD Primary Care Provider Unavail able Sydnieyessenia Renetta Unavailable [phone] Allergies Allergen (clinical drug ingredient) Drug/Non Drug Allergy documented on EMR Reaction Allergy Type Onset Date Status acetaminophen / oxycodone Percocet dizziness,nause a Drug Allergy Active tramadol traMADol HCl dizziness,nause a Drug Allergy Active Reason For Referral No Information Medications Medication SIG (Take, Route, Frequency, Duration) Notes Start Date End Date Status Feldene 20 MG 1 capsule with food Orally Once a day for 30 day(s) 12/30/2022 Active Custom Orthotics as directed 12/30/2022 Active Vitamin D3 25 MCG (1000 UT) 1 tablet Ora lly Once a day Active Atorvastatin Calcium 40 MG 1 tablet Oral ly Once a day Active Loratadine 10 MG 1 tablet Orally Once a day Active Ibuprofen 800 MG 1 tablet every Orall y every 6 hrs Active buPROPion HCl ER (Smoking Det) 150 MG 1 tablet in the morning Orally Once a day Active Senna 8.6 MG 2 tablets at bedtime as needed Orally Once a day Active Montelukast Sodium 10 MG 1 tablet Orally Once a day Active Social History Tobacco Use: Social History Observation Description Date Details (start date - stop date) Never Smoker NA - NA Tobacco Use/Smoking Question Answer Notes Are you a: nonsmoker Additional Findings: Tobacco Non-User Current no n-smoker Alcohol Screen Question Answer Notes Did you have a drink contain ing alcohol in the past year? Yes How often did you have a dri nk containing alcohol in the past year? Monthly or less (1 point) Points 1 Interpretation Negative Tobacco use other than smoking: Question Answer Notes Are you an other tobacco user? 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 Plan Of Treatment Pending Test Test Name Order Date X ray : Foot, right 3V 12/30/2022 Insurance Providers Payer Name Payer Address Payer Phone Subscriber Number Group Number Insured Name Patient Relationship to Insured Coverage Start Date Coverage End Date [facility] [employer] Claims [address] [place] [id number] Bibi Gillespie Self - patient is the insured Medical (General) History Medical History History ICD Code Cholesterol Depression Bone implants/screws Constipation Vitamin D deficiency Carpal tunnel Allergic rhinitis Surgical History Surgery Date(Month/Year) B/L rotator cuff 2015,2017 x2 tubligation 1992
--- OUTSIDE RECORDS SUMMARY | 2024-08-14 12:32 | XMS_ITS ---
[facility] Organization [facility] Address [address] [place] [address] Care Team Providers Care Cardroom Hand Name Role Phone Vanesa BRANHAM, Samina Primary Care Provider Unavail able Renetta Huang Unavailable [phone] Allergies Allergen (clinical drug ingredient) Drug/Non Drug Allergy documented on EMR Reaction Allergy Type Onset Date Status acetaminophen / oxycodone Percocet dizziness,nause a Drug Allergy Active tramadol traMADol HCl dizziness,nause a Drug Allergy Active REASON FOR VISIT PCP-03/21, Foot pain Medications Medication SIG (Take, Route, Frequency, Duration) Notes Start Date End Date Status Feldene 20 MG 1 capsule with food Orally Once a day for 30 day(s) 12/30/2022 Active Custom Orthotics as directed 12/30/2022 Active Ibuprofen 800 MG 1 tablet every Orall y every 6 hrs Active Senna 8.6 MG 2 tablets at bedtime as needed Orally Once a day Active Montelukast Sodium 10 MG 1 tablet Orally Once a day Active Vitamin D3 25 MCG (1000 UT) 1 tablet Ora lly Once a day Active Atorvastatin Calcium 40 MG 1 tablet Oral ly Once a day Active Loratadine 10 MG 1 tablet Orally Once a day Active buPROPion HCl ER (Smoking Det) 150 MG 1 tablet in the morning Orally Once a day Active Social History [...] Are you an other tobacco user? No Vital Signs Height 5 ft 1 in in 03/16/2023 Weight 175 lbs 03/16/2023 BMI 33.06 kg/m2 03/16/2023 Encounters Encounter Location Date Provider Diagnosis [facility] [address] [address] 03/16/2023 Renetta Huang Hallux valgus (acquired), right foot M20.11 ; Hammer toe of right foot M20.41 and Interdigital neuroma of right foot G57.81 Assessments Encounter Date Diagnosis (ICD Code) Assessment Notes Treatment Notes Treatment Clinical Notes Section Notes 03/16/2023 Hallux valgus (acquired), right foot (ICD-10 - M20.11) 03/16/2023 Hammer toe of right foot (ICD-10 - M20.41) 03/16/2023 Interdigital neuroma of right foot (ICD-10 - G57.81) Plan Of Treatment Next Appt Details Follow Up: prn, Reason: Progress Notes * Bibi PENGDOB: [birth year] (58 yo F)Acc No.[id number]:03/16/2023 Progress Note Patient:?Bibi Peng Provider:?Renetta Huang DPM :1965???Age:58 Y???Sex:Female D ate:03/16/2023 Address:[address] [place], [place] [id number] Pcp:Samina Alexis MD Subjective: * Chief Complaints: * ???PCP-03/21Foot pain * HPI: ???Foot Pain:?Nature:?burning, tingling, shooting, radiating.?Location:?Great toe joint and , Ball of foot , RIGHT.?Duration:?several weeks.?Onset:?gradual , shoes.?Course:?improved.?Aggrevated:?any pressure , standing , walking , shoes.?Treatments:?rest , change in shoes medication ( Feldene) improves condition.? * ROS:?General/Constitutional:?Nausea?denies, denies.?Vomiting?denies, denies.?Hunger Thirst?denies, denies.?Loss appetite?denies, denies.?Chills?denies, denies.?Fatigue?denies, denies.?Fever?denies, denies.?Night Sweats denies, denies.?Unexplained weight loss?denies, denies.?Unexplained weight gain?denies, denies.?HEENTM:?Dentures?denies, denies.?Dizziness?denies, denies.?Glasses/contacts?denies, admits.?Retinopathy?denies, denies.?Blurred/double vision?denies, denies.?TMJ?denies, denies.?Discharge/drainage?denies, denies.?Implants?denies, denies.?Sore throat?denies, denies.?Dental implants?denies, denies.?Hard of hearing ?denies, denies.?Difficulty chewing/swallowing/speaking?denies, denies.?Nose bleeds?denies, denies.?Sore mouth?denies, denies.?Respiratory:?On Oxygen?denies, denies.?Pneumonia/pleurisy?denies, denies.?Bronchitis?denies, denies.?Emphysema?denies, denies.?Coughing?denies, denies.?Cough blood?denies, denies.?Shortness of breath?denies, denies.?Wheezing?denies, denies.?Cardiovascular:?Pacemaker?denies, denies.?MVP?denies, denies.?WPW?denies, denies.?CHF?denies, denies.?Heart attack?denies, denies.?Septal defect?denies, denies.?Rapid beat?denies, denies.?Chest pain ?denies, denies.?Atrial Fib.?denies, denies.?Murmur/Palpitations?denies, denies.?Gastrointestinal:?Hemorrhoids?denies, denies.?Stomach/Abdominal pain?denies, denies.?Dark blood stool?denies, denies.?Irritable bowel ?denies, denies.?Constipation?denies, admits.?Diarrhea?denies, denies.?Hematology:?Swelling?denies, denies.?Clots?denies, denies.?Varicose Veins?denies, denies.?Bruising?denies, denies.?Bleeding problem?denies, denies.?Genitourinary:?Blood urine?denies, denies.?Frequent/Painfu/urination/bladder control?denies, denies.?Kidney stones?denies, denies.?Infection (UTI)?denies, denies.?Nephropathy?denies, denies.?sex trans dis (STD)?denies, denies.?Prostate?denies, denies.?Musculoskeletal:?Hammertoes?denies, denies.?Bunions?admits, admits.?Back Pain?denies, denies.?Muscle Cramps/ Resting?denies, admits.?Muscle cramps / walking?denies, denies.?Generalized aches and pains?denies, admits.?Weakness?denies, admits.?Integ.:?Pate?denies, denies.?Scars?denies, denies.?Corns/calluses?denies, denies.?Ingrown nails?denies, denies.?Painful nails?denies, denies.?Open Sores?denies, denies.?Rashes?denies, denies.?Neurologic:?Difficulty sleeping?denies, admits.?Brain disorder?denies, denies.?Numbness?denies, admits.?Balance trouble?denies, denies.?Confusion?denies, denies.?Fainting/blackouts?denies, denies.?Tingling?denies, admits.?Tremors?denies, denies.? * Medical History:? * Surgical History:?B/L rotato r cuff 2015,2017C-Section x2 tubligation 1992 * Hospitalization/Major Diagno stic Procedure:?Denies Past Hospitalization * Family History:?Mother: janneth gonsalez, Foot Problems, diagnosed with Family history of arthritis, Unspecified essential hypertension, Other specified conditions influencing health status.?Father: .?Maternal Grand Mother: Cancer, diagnosed with Other malignant neoplasm of unspecified site.?Maternal Grand Father: diagnosed with Diabetic - NIDDM.? * Social History:?Tobacco Use:?Tobacco Use/Smoking?Are you a:?nonsmoker ?Additional Findings: Tobacco Non-User?Current non-smoker ?Tobacco use other than smoking?Are you an other tobacco user??No ???Drugs/Alcohol:?Drugs?Have you used drugs other than those for medical reasons in the past 12 months??No ?Alcohol Screen?Did you have a drink containing alcohol in the past year??Yes ?How often did you have a drink containing alcohol in the past year??Monthly or less (1 point) ?Points?1 ?Interpretation?Negative ???Miscellaneous:?Caffeine: yes, frequency: 1 cup a day. ?Children: yes, 2. ?Marital status: . ?Occupation: Unemployed. * Medications:?TakingVitamin D 3 25 MCG (1000 UT) Tablet 1 tablet Orally Once a dayLoratadine 10 MG Tablet 1 tablet Orally Once a dayAtorvastatin Calcium 40 MG Tablet 1 tablet Orally Once a daybuPROPion HCl ER (Smoking Det) 150 MG Tablet Extended Release 12 Hour 1 tablet in the morning Orally Once a dayIbuprofen 800 MG Tablet 1 tablet every Orally every 6 hrsMontelukast Sodium 10 MG Tablet 1 tablet Orally Once a daySenna 8.6 MG Tablet 2 tablets at bedtime as needed Orally Once a dayFeldene 20 MG Capsule 1 capsule with food Orally Once a dayCustom Orthotics as directed Medication List reviewed and reconciled with the patientTaking Vitamin D3 25 MCG (1000 UT) Tablet 1 tablet Orally Once a dayTaking Loratadine 10 MG Tablet 1 tablet Orally Once a dayTaking Atorvastatin Calcium 40 MG Tablet 1 tablet Orally Once a dayTaking buPROPion HCl ER (Smoking Det) 150 MG Tablet Extended Release 12 Hour 1 tablet in the morning Orally Once a dayTaking Ibuprofen 800 MG Tablet 1 tablet every Orally every 6 hrsTaking Montelukast Sodium 10 MG Tablet 1 tablet Orally Once a dayTaking Senna 8.6 MG Tablet 2 tablets at bedtime as needed Orally Once a dayTaking Feldene 20 MG Capsule 1 capsule with food Orally Once a dayTaking Custom Orthotics as directed Medication List reviewed and reconciled with the patient * Allergies:?traMADol HCl: diz ziness,nausea - AllergyPercocet: dizziness,nausea - Allergyyes[Allergies Verified] Objective: * Vitals:?Ht: 5 ft 1 in, Wt:17 5, BMI:33.06, Shoe size: 7, Ht-cm: 154.94 cm, Wt-k.38 kg. * Examination: ???General Examination: ?GENERAL APPEARANCE:?Reveals a pleasant, alert, well nourished, well- developed, well hydrated individual, who demonstrates proper attention to hygiene/body habitus, and is in no acute distress.?ORIENTED:?person, place, and time.?Neurological: ?SENSORY:?Neurological exam reveals intact sensorium, pain sensation normal, vibration sensation intact, pinprick sensation is normal in the lower extremities, Pt denies, anesthesia, burning, paresthesia, tingling, B/L.?TINEL'S COMPRESSION:?Negative tarsal tunnel, dixon pedis, and medial calcaneal nerves.?DEEP TENDON REFLEXES:?Achilles, 2/4, B/L.?Vascular: ?DP PULSES:?3/4, B/L.?PT PULSES:?3/4, B/L.?CAPILLARY FILL TIME:?immediate, all digits, B/L.?SKIN TEMPERTURE GRADIENT OF THE LOWER EXTERMITIES:?warm to cool, proximal to distal, B/L.?HAIR GROWTH/TEXTURE/ELASTICITY/TURGOR:?normal, B/L.?PIGMENTATION:?normal, B/L.?EDEMA:?absent, B/L.?Dermatologic: ?SKIN FINDINGS:?Skin exam reveals normal texture, elasticity, and turgor. There are no masses. The interspaces are clear.?Orthopedic: ?MUSCLE STRENGTH:?5/5 all groups in a symmetrical fashion , B/L.?BUNION:? Dorso-Medially prominent 1st MPJ, (+) Mild ROM 1st MPJ full,and without pain, or crepitus Pain on palpation, inflammation present medially, Lateral tracking 1st MPJ incompletely reducable , RIGHT.?DIGITAL DEFORMITIES:?Digital contracture, PIPJ, 2-5 B/L, incompl-reducible with WB, or to push-up test, no over, nor underlapping.?Neuroma Pain: ?PALPATION:?NO Pain with direct palpation of the intermetatarsal space , No Pain with lateral compression of metatarsals , 2nd interspace , RIGHT.? Assessment: * Assessment: 1.?Hallux valgus (acquired), right foot - M20.11 (Primary), Chronic problem, Stable (1=3,2=4)?2.?Hammer toe of right foot - M20.41, Chronic problem, Stable (1=3,2=4)?3.?Interdigital neuroma of right foot - G57.81, Acute problem, Stable (1=3)? Plan: * Treatment: * Procedure Codes:? * Preventive Medicine:? ??Counseling:?Discussion:?-14: Office or other outpatient visit for the evaluation and management of an established patient, which required a medically appropriate history and/or examination and MODERATE level of DECISION MAKING for: 1 OR MORE CHRONIC PROBLEM(S) THATS WORSENING, 2 STABLE CHRONIC PROBLEMS, A NEWLY DIAGNOSED PROBLEM WITH UNCERTAIN PROGNOSIS, AN ACUTE COMPLICATED INJURY WITH MULTIPLE TREATMENT OPTIONS, OR AN ACUTE PROBLEM WITH ACCOMPANYING SYSTEMIC SYMPTOMS, THAT POSE(S) A MODERATE RISK OF MORBIDITY. THIS CONDITION MAY ALSO INCLUDE RX DRUG MANAGEMENT, OR A DECISON FOR MINOR SURGERY. When using time for code selection, 30-39 min of total time was spent on the day of the encounter interpreting the data and educating the patient as to the nature of their condition, treatment options available according to their individual PMH, meds, allergies, and overall health/living conditions, as well as any potential risks or complications that may occur from a failure to adhere to, and participate in, the recommended course of therapy. The discussion included a complete verbal, and/or written explanation of the examination results, any x-rays taken, the proposed diagnosis, and outline of the treatment plan. A schedule for future care needs was also explained. The patient verbalized an understanding of the instructions at this time and agreed to be an active participant in their treatment. If the patient should think of any questions or concerns after the visit, I have encouraged the patient to call the office.?Discussion for Bunion sx:?We elected to try conservative treatment at the present time, Recomm, rest, ice, proper shoegear, padding, orthotics, anti-inflammatories or tylenol as tolerated, topical analgesics, cortisone injections.?Neuroma:?The Pt. was counseled on the diagnosis, possible etiologies (including foot structure/foot function/nonsupportive shoes/activity), treatment options, and importance for adherence to recommendations regarding the treatment for a Neuroma. The advantages and disadvantages of the treatment options including medications available, forefoot offloading padding, mechanically accomidative orthotics, supportive shoegear with adequate forefoot width, cortisone injection(s), experimental sclerosis therapy, and surgical treatment options including nerve release, nerve relocation, and complete nerve removal were discussed in detail with each procedures' outcomes and possible sequlea (i.e.failure of procedure, stump neuroma formation, infection, chronic scarring, chronic pain). Patient questions re: the potential successes of conservative vs surgical treatment options were reviewed and their answers were understood. The patient verbally confirmed a full understanding of the above.?Orthotic Dispensing:?The patient presents today for fitting and dispensing of orthotics. The inserts were checked against the prescription and found to be accurate. They were properly fitted to the patient's feet in both weight-bearing and non-weight bearing attitudes. The patient was instructed to gradually increase the amount of time they are wearing the orthoses, starting with one hour the first day and thereon progressively increasing the amount of time used until they are comfortable to be worn all day and with all activities. They were asked to call the office if any signs of skin irritation were noted including redness, blistering or callous formation. The patient verbally indicated a full understanding of all the above information, Handout reviewed and dispensed, The patient signed confirmation form indicating receipt of DME device.?Shoe Gear Counseling:?The patient and I reviewed the types of shoes they should be wearing. My recommendation included obtaining a well-fitted shoe with a good supportive, non-foldable nor twistable sole, plenty of toe/room for the forefoot, and proper arch support. Based on today's examination, I recommended the patient look for new shoes, by having their feet professionally measured. We discussed that generally the best time of the day for a shoe fitting is the afternoon. Different shoes types and brands to best match the patient's occupation and vocation were discussed. Specific brand selection will be up to the patient, their individual foot condition/deformities, and fit. The patient and I reviewed the standard new shoe break in period by wearing them for a few hours a day while checking for redness or sores as wear time is increased. The patient verbally confirmed to understanding the information discussed.? * Follow Up:?prn * Images: * Sign off status: Completed true * Provider:Libra Huang DPM Date:? Generated for Claribel ríos/Sonya/Omegaitting on:?08/14/2024 12:31 PM EST History and Physical Notes * HPI (History of Present Illness) Category Sub-Category Detail Notes Category Not es Foot Pain Nature: burning, tingling, shooting, radiating Location: Great toe joint and , Ball of foot , RIGHT Duration: several weeks Onset: gradual , shoes Course: improved Aggravated: any pressure , stand ing , walking , shoes Treatments: rest , change in rodo es medication ( Feldene) improves condition Examination Category Sub-Category Detail Notes Category Not es Neuroma Pain PALPATION: NO Pain with dir ect palpation of the intermetatarsal space , No Pain with lateral compression of metatarsals , 2nd interspace , RIGHT Neurological SENSORY: Neurological exa m reveals intact sensorium, pain sensation normal, vibration sensation intact, pinprick sensation is normal in the lower extremities, Pt denies, anesthesia, burning, paresthesia, tingling, B/L TINEL'S COMPRESSION: Negative tarsal donnell danii, dixon pedis, and medial calcaneal nerves DEEP TENDON REFLEXES: Achilles, 2/4, B/L Dermatologic SKIN FINDINGS: Skin exam reveal s normal texture, elasticity, and turgor. There are no masses. The interspaces are clear Orthopedic BUNION: Dorso-Medially p rominent 1st MPJ, (+) Mild ROM 1st MPJ full,and without pain, or crepitus Pain on palpation, inflammation present medially, Lateral tracking 1st MPJ incompletely reducable , RIGHT DIGITAL DEFORMITIES: Digital contracture , PIPJ, 2-5 B/L, incompl-reducible with WB, or to push-up test, no over, nor underlapping MUSCLE STRENGTH: 5/5 all groups in a symmetrical fashion , B/L General Examination GENERAL APPEARANCE: Reveals a pleasant, alert, well nourished, well-developed, well hydrated individual, who demonstrates proper attention to hygiene/body habitus, and is in no acute distress ORIENTED: person, place, and t mikayla Vascular DP PULSES(B): 3/4, B/L PT PULSES(B): 3/4, B/L CAPILLARY FILL TIME: immediate, all digi ts, B/L TEMPERTURE GRADIENT(C): warm to cool, pr oximal to distal, B/L TROPHIC CONDITION-TEXTURE/ELASTICITY/TURGOR/HAIR GROWTH(B): normal, B/L EDEMA(C): absent, B/L PIGMENTATION: normal, B/L
[2024-08-14 12:33] VITALS: BP 126/72; BMI 32.3
== END 2024-08-14 13:03 | disposition home or self-care (01) ==
PROVIDERS: PCP Internal Medicine; Visit Provider Internal Medicine
DX: M25.512 Pain in left shoulder (principal); M54.12 Radiculopathy, cervical region; M54.50 Low back pain, unspecified; F32.0 Major depressive disorder, single episode, mild; E78.5 Hyperlipidemia, unspecified; F41.1 Generalized anxiety disorder; Z23 Encounter for immunization

== ENCOUNTER → 2024-08-14 12:30 | Outpatient (BNVA) | payer OTHER, SELFPAY | PROVIDERS: PCP Internal Medicine; Visit Provider Internal Medicine | DX: M25.512 Pain in left shoulder (principal); M54.12 Radiculopathy, cervical region; M54.50 Low back pain, unspecified; E78.5 Hyperlipidemia, unspecified; F32.0 Major depressive disorder, single episode, mild; F41.1 Generalized anxiety disorder; Z28.21 Immunization not carried out because of patient refusal; Z78.0 Asymptomatic menopausal state | CPT/HCPCS: 90471; 99212 ==

== ENCOUNTER 2024-08-22 12:49 | Outpatient (REF) | payer OTHER, SELFPAY ==
--- OUTSIDE RECORDS SUMMARY | 2024-08-22 12:52 | XMS_ITS | Patient Health Record ---
[facility] Address [address] [facility] [place] [address] Care Team Providers Care Building Services Coordinator Name Role Phone Samina Alexis MD Primary Care Provider Unavail able Sydnieyessenia Renetta Unavailable [phone] Allergies Allergen (clinical drug ingredient) Drug/Non Drug [...] Problem Status W/U Status Risk Notes Problem [id number] Hallux valgus (acquired), right foot (M20.11) Active confirmed Problem [id number] Hammer toe of right foot (M20.41) Active confirmed Problem [id number] 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) Active confirmed Plan Of Treatment Pending Test Test Name Order Date X ray : Foot, right 3V 12/30/2022 Insurance Providers Payer Name Payer Address Payer Phone Subscriber Number Group Number Insured Name Patient Relationship to Insured Coverage Start Date Coverage End Date [facility] SCO Claims [address] [place] [id number] Bibi Gillespie Self - patient is the insured Medical (General) History Medical History History ICD Code Cholesterol Depression Bone implants/screws Constipation Vitamin D deficiency Carpal tunnel Allergic rhinitis Surgical History Surgery Date(Month/Year) B/L rotator cuff 2015,2017 x2 tubligation 1992
== END 2024-08-22 12:50 | disposition home or self-care (01) ==
LOC: HO.XRAY 12:49
PROVIDERS: PCP Internal Medicine; Visit Provider Internal Medicine
DX: M54.50 Low back pain, unspecified (principal); M25.512 Pain in left shoulder
CPT/HCPCS: 72100; 73030

== ENCOUNTER 2024-09-12 10:16 | Outpatient (AMB) | payer OTHER, SELFPAY ==
--- NOTE | 2024-09-12 10:21 | A.OFFVIS_ITS ---
Vital Signs 09/12/24 10:22 Height 5 ft 1 in Weight 173 lb BMI 32.7 BP 120/72 Intake Visit Reasons: LADLE LINER annual exam Intake Note: no concerns Senior Client Advisor Required: Yes Senior Client Advisor Language: Video Tape Editor Services: Senior Client Advisor Present (in person) Senior Client Advisor Name: Sally HINES Information Interpreted: non-clinical & clinical Senior Manufacturing Engineer: Senior Manufacturing Engineer Present (Sally HINES) Accompanied by: Self / Same As Patient Allergies acetaminophen [Percocet] Allergy (Intermediate, Verified 09/12/24 10:24) nausea,dizziness oxycodone [Percocet] Allergy (Intermediate, Verified 09/12/24 10:24) nausea,dizziness tramadol Allergy (Intermediate, Verified 09/12/24 10:24) dizziness Post menopausal: Yes HPI Comments Details: She is a postmenopausal woman 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 She is doing well with no competitive shopper concerns. Currently sexually active. Denies any vaginal dryness or irritation. STI testing offered; she declines. Attempting to eat a healthy diet with calcium and vitamin D and stays active with exercise. Last pap smear; 2019. Last mammogram; 2023. Colonoscopy is UTD. Denies any family history of breast, ovarian or colon cancer. [facility] Medical History Hand pain Mild depression Obesity (BMI 30.0-34.9) Postmenopausal Tachycardia Carpal tunnel syndrome Allergic rhinitis Constipation by delayed colonic transit Dyslipidemia Shoulder pain Surgical History Hx of colonoscopy History of arthroscopy of right shoulder History of repair of left rotator cuff History of tubal ligation History of Family History Mother Hypertension Osteoporosis Arthritis Father No problems noted. Social History Household Members: Spouse Housing: House Alcohol intake: current Alcohol intake frequency: holidays/special occasions only Alcohol type: wine Patient Tobacco Use Status: Never used Tobacco e-Cigarette/Vaping Use: Never Used Second Hand Smoke Exposure: No service: No Current occupational status: disabled Sexual orientation: Straight/Heterosexual Gender identity: Female Cognitive needs: No Hearing needs: No Vision needs: No Female Reproductive History Menstrual control method: permanent sterilization Permanent Sterilization: BTL Menopause type: natural Total pregnancies: 4 Full term: 4 Number of Living Children: 4 Date of last pap smear: 04/16/20 (neg pap and hpv) Date of Mammogram: 06/10/24 (Birad 1) Review of Systems Const All systems reviewed & are unremarkable except as noted in HPI and below Reports as per HPI Eyes Reports no additional complaints ENT Reports no additional complaints Card Reports no additional complaints Resp Reports no additional complaints GI Reports as per HPI and Reports no additional complaints Reports as per HPI Musc Reports no additional complaints Skin/Breast Reports as per HPI Neuro Reports no additional complaints Psych Reports no additional complaints Endo Reports no additional complaints Murtaza/Lymph Reports no additional complaints Aller/Immun Reports no additional complaints Physical Exam Vital Signs: Last Vital Signs BP 120/72 09/12/24 10:22 BMI result Body Mass Index 32.7 Const General: cooperative, healthy appearing, no acute distress, well developed and alert Orientation/consciousness: patient oriented x3 HEENT Head: Yes normal to inspection Eyes General: appearance normal, both eyes and all related structures Neck Neck: Yes normal visual inspection Thyroid: Thyroid normal Chest Chest palpation & inspection: normal inspection of the chest and other (no puckering, dimpling, peau de orange, retraction, discharge, masses) Breast/axilla inspection: normal inspection of the breasts Breast/axilla palpation: normal palpation of the breasts Resp Effort & Inspection: normal respiratory effort GI Inspection: Yes normal to inspection Palpation (GI): Soft to palpation Rectal Exam - Female: deferred General: Yes bladder normal to palpation External Female Exam: normal external appearance and normal appearance of the urethra Speculum Exam - Vagina: normal appearance of the vagina, normal palpation, normal vaginal discharge and vagina atrophic Speculum Exam - Cervix: normal appearance of the cervix and normal palpation Bimanual exam- vagina & uterus: normal bimanual exam, normal palpation, uterine size normal, bladder normal to palpation, normal palpation and non-tender Bimanual Exam- Adnexa, other: no masses Skin General skin exam: no rashes or lesions noted Rashes: no rashes Neuro General: patient oriented x3 Cognition (Neuro): normal cognition Extrem General: Yes normal to inspection Psych Attitude: cooperative Thought process: Normal thought process present Assessment & Plan Assessment & Plan (1) Encounter for well woman exam with routine gynecological exam: Code(s): Z01.419 - Encounter for gynecological examination (general) (routine) without abnormal findings Category: Medical Plan Discussed: Current recommendations for pap smears per ASCCP guidelines. Breast awareness, periodic self breast exams and yearly mammogram. Maintain a healthy lifestyle, well balanced diet including Calcium 1,200 mg and Vitamin D 600 IU daily, and routine exercise. Contact the office with any postmenopausal bleeding. Patient verbalizes understanding and agrees to the plan of care. She was given opportunity to ask questions and all questions were answered to the best of my ability. RTO in 1 year for annual competitive shopper exam. This note is constructed using voice recognition software. While every effort has been made to ensure accuracy, corporate sales manager errors may have been included. Coding Level of Care Code Est Pt Prev Care 40-64y(91022) Diagnoses Encounter for well woman exam with routine gynecological exam Z01.419
[2024-09-12 10:22] VITALS: BP 120/72; BMI 32.7
== END 2024-09-12 11:05 | disposition home or self-care (01) ==
LOC: HO.HWS 10:16
PROVIDERS: PCP Internal Medicine; Visit Provider Advanced Practice Midwife
DX: Z01.419 Encounter for gynecological examination (general) (routine) without abnormal findings (principal)
CPT/HCPCS: 99396; 99459

== ENCOUNTER 2024-09-12 10:16 | Outpatient (REF) | payer OTHER, SELFPAY ==
--- OUTSIDE RECORDS SUMMARY | 2024-09-12 12:39 | XMS_ITS ---
Author Organization [facility] Address [address] [place] [address] Care Team Providers Care Car Sales Consultant Name Role Phone Vanesa BRANHAM, Samina Primary Care Provider Unavail able Renetta Huang Unavailable [phone] Allergies Allergen (clinical drug ingredient) Drug/Non Drug [...] 03/16/2023 Encounters Encounter Location Date Provider Diagnosis [facility] [address] [address] 03/16/2023 Renetta Huang Hallux valgus (acquired), right [...] * Bibi PENGDOB: [birth year] (58 yo F)Acc No.[id number]:03/16/2023 Progress Note Patient:?Bibi Peng Provider:?Renetta Huang DPM :1965???Age:58 Y???Sex:Female D ate:03/16/2023 Address:[address] [place], [place] [id number] Pcp:Samina Alexis MD Subjective: * Chief Complaints: [...] Provider:Libra Huang DPM Date:? Generated for Claribel ríos/Sonya/Geronimo on:?09/12/2024 12:38 PM EST History and Physical Notes * [...] person, place, and t [facility] DP PULSES (B): 3/4, B/L PT PULSES (B): 3/4, B/L CAPILLARY FILL TIME: immediate, all digi ts, B/L TEMPERTURE GRADIENT (C): warm to cool, p roximal to distal, B/L TROPHIC CONDITION-TEXTURE/ELASTICITY/TURGOR/HAIR GROWTH (B): normal, B/L EDEMA (C): absent, B/L PIGMENTATION: normal, B/L
--- OUTSIDE RECORDS SUMMARY | 2024-09-12 12:39 | XMS_ITS | Patient Health Record ---
Author Organization [facility] Address [address] [facility] [place] [address] Care Team Providers Care Punch Card Operator Name Role Phone Samina Alexis MD Primary Care Provider Unavail able Sydnieyessenia Renetta Unavailable [phone] Allergies Allergen (clinical drug ingredient) Drug/Non Drug [...] Problem Status W/U Status Risk Notes Problem [id number] Hallux valgus (acquired), right foot (M20.11) Active confirmed Problem 772339817 Hammer toe of right foot (M20.41) Active confirmed Problem 142562058 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) Active confirmed Plan Of Treatment Pending Test Test Name Order Date X ray : Foot, right 3V 12/30/2022 Insurance Providers Payer Name Payer Address Payer Phone Subscriber Number Group Number Insured Name Patient Relationship to Insured Coverage Start Date Coverage End Date [facility] SCO Claims [address] [place] [id number] Bibi Gillespie Self - patient is the insured Medical (General) History Medical History History ICD Code Cholesterol Depression Bone implants/screws Constipation Vitamin D deficiency Carpal tunnel Allergic rhinitis Surgical History Surgery Date(Month/Year) B/L rotator cuff 2015,2017 x2 tubligation 1992
[2024-09-13 11:26] LABS: HPV 16,18/45 See PAP report
== END 2024-09-12 10:17 | disposition home or self-care (01) ==
LOC: HO.LNP 10:16
PROVIDERS: PCP Internal Medicine; Visit Provider Advanced Practice Midwife
DX: Z01.419 Encounter for gynecological examination (general) (routine) without abnormal findings (principal); Z98.51 Tubal ligation status; Z11.51 Encounter for screening for human papillomavirus (HPV); Z72.89 Other problems related to lifestyle
CPT/HCPCS: 87626; 88175; 99396; 99459

== ENCOUNTER 2024-09-14 09:01 | Outpatient (REF) | payer OTHER, SELFPAY ==
[2024-09-14 09:26] LABS: MANUAL DIFF FLAG NO
[2024-09-14 10:23] LABS: Basophils Absolute Auto 0.1 X10*3/uL (0.0-0.2); Eosinophils Absolute Auto 0.7 X10*3/uL (0.0-0.4); Eosinophils Percent Auto 8.8 % (0-4); Hematocrit 45.1 % (37.0-47.0); Hemoglobin 14.7 g/dl (12.0-16.0); Imm Gran Abs Auto 0.03 X10*3/uL (0.00-0.03); Imm Gran Pct Auto 0.4 % (0.0-0.4); Lymphocytes Absolute Auto 3.4 X10*3/uL (1.2-4.9); Lymphocytes Percent Auto 41.1 % (20-40); Mean Corpuscular HGB Conc 32.6 g/dl (31.0-35.0); Mean Corpuscular Hemoglobin 29.5 pg (27.0-33.0); Mean Corpuscular Volume 90.6 fL (80.0-98.0); Mean Platelet Volume 9.1 fL (9.4-12.3); Monocytes Absolute Auto 0.7 X10*3/uL (0.1-1.2); Monocytes Percent Auto 8.8 % (2-11); Neutrophils Absolute Auto 3.3 x10*3/uL (2.0-8.3); Neutrophils Percent Auto 39.9 % (45-73); Platelet Count 336 X10*3/uL (160-400); Red Blood Count 4.98 X10*6/uL (4.20-5.50); Red Cell Distribution Width 12.4 % (11.0-16.0); White Blood Count 8.2 X10*3/uL (4.8-10.8)
[2024-09-14 11:16] LABS: Alanine Aminotransferase 35 U/L (0-31); Albumin Level 4.1 g/dL (3.5-5.0); Alkaline Phosphatase 66 U/L (39-117); Anion Gap 9 (12-20); Aspartate Amino Transferase 28 U/L (5-31); Bilirubin Total 0.3 mg/dL (0.0-1.0); Blood Urea Nitrogen 12 mg/dL (9-16); Calcium 9.1 mg/dL (8.4-10.2); Carbon Dioxide 27 mmol/L (22-29); Chloride 110 mmol/L (96-108); Cholesterol 169 mg/dL (<200); Estimated Glomerular Filt Rate > 60; Glucose Random 93 mg/dL (60-115); HDL Cholesterol 51 mg/dL (>40); LDL Cholesterol Calculated 103 mg/dL (<100); Potassium 4.1 mmol/L (3.3-5.1); Sodium 142 mmol/L (135-145); Total Protein 7.2 g/dL (6.5-8.0); Triglycerides 79 mg/dL (<150)
== END 2024-09-14 09:02 | disposition home or self-care (01) ==
LOC: HO.LAB 09:01
PROVIDERS: PCP Internal Medicine; Visit Provider Internal Medicine
DX: M54.12 Radiculopathy, cervical region (principal); E78.5 Hyperlipidemia, unspecified
CPT/HCPCS: 36415; 80053; 80061; 85025

== ENCOUNTER 2024-09-26 08:32 | Outpatient (REF) | payer OTHER, SELFPAY ==
--- NOTE | ~2024-09-26 | MM_ITS ---
EXAMINATION: DXA BONE DENSITY AXIAL HISTORY: Estrogen deficiency TECHNIQUE: [employer]: [employer] Dual energy absorptiometry (DEXA) of the lumbar spine, total left hip, and femoral neck was performed. COMPARISON: Comparison is made with the prior examination dated 12/03/2020. FINDINGS: The bone mineral density of the lumbar spine is 1.330 with a T-score of 1.3, and a Z-score of 1.8. This represents a BMD change of -4.0% compared to the prior exam. This is statistically significant. The bone mineral density of the left total hip is 1.095 with a T-score of 0.7, and a Z-score of 1.2. This represents BMD change of -1.9% compared to the prior exam. This is not statistically significant. The bone mineral density of the left femoral neck is 1.073 with a T-score of 0.3, and a Z-score of 1.1. This represents BMD change of 0.8% compared to the prior exam. MM/XR DEXA axial skeleton IMPRESSION: Based on bone mineral density, and according to World Health Organization (WHO) criteria, the diagnosis is consistent with normal bone mineral density. All bone density values are in grams per centimeter squared (g/cm2). Statistically, 68% of repeat scans fall within 1 SD (+/- 0.010 g/cm2 for AP spine L1-L4) and 1 SD (+/- 0.012 g/cm2 for femur total) FRAX is a trademark of the [employer]'s [employer] Met[employer] Disease, a World Health Organization (WHO) Collaborating Center. Electronically signed by: Luc Schulz MD 10/02/2024 11:12 AM [facility]
--- OUTSIDE RECORDS SUMMARY | 2024-09-26 08:53 | XMS_ITS | Clinical Summary ---
Author Organization [employer] Address [address] [place] [address] Care Team Providers Care Education Liaison Name Role Phone Unavailable Primary Care Provider Unavailabl e Immunizations Name Administration Dates Next Due Moderna Covid-19 Vaccine 6+ Bivalent 10/01/2022 Social History Tobacco Use Types Packs/Day Years Used Date Smoking Tobacco: Never Assessed Comments Unknown Sex and Gender Information Value Date Recorded Sex Assigned at Female 06/29/2022 10:14 AM EDT Legal Sex Female 10:14 AM EDT Gender Identity Female 06/29/2022 10:14 AM EDT Sexual Orientation Straight 06/29/2022 10 :14 AM EDT Plan of Treatment Health Maintenance Due Date Last Done Comments CT Colonography 1967 Colonoscopy 1967 Colorectal Cancer Screening 1967 Depression Screening 1967 FIT DNA/Cologuard 1967 FIT 1967 FOBT 1967 Sigmoidoscopy 1967 Alcohol/Substance Use Screening 1979 Tobacco Screening 1979 DTaP/Tdap/Td Vaccines (1 - Tdap) 1986 Hepatitis B Vaccines (1 of 3 - 19+ 3-dose series) 1986 Pap Smear 02/20/1988 Cervical Cancer Screening 1997 HPV/Cotest 1997 Mammogram 2007 COVID-19 Vaccine ( season) 2024 10/01/2022, 11/07/2021, 02/17/2021, Additional history exists Influenza Vaccine (#1) 2024 RSV Patients and Patients Aged 60 years or older (1 - 1-dose 75+ series) 2042 Zoster Vaccines Completed 02/24/2022, 12/23/2021 HIB Vaccines Aged Out No longer eligi ble based on patient's age to complete this topic HPV Vaccines Aged Out No longer eligi ble based on patient's age to complete this topic Hepatitis A Vaccines Aged Out No long er eligible based on patient's age to complete this topic IPV Vaccines Aged Out No longer eligi ble based on patient's age to complete this topic Meningococcal Vaccine Aged Out No lashonda isidoro eligible based on patient's age to complete this topic Pneumococcal Vaccine: Pediatrics (0 to 5 Years) and At-Risk Patients (6 to 64 Years) Aged Out No longer eligible based on patient's age to complete this topic RSV under 20 months Aged Out No longe r eligible based on patient's age to complete this topic Rotavirus Vaccines Aged Out No longer eligible based on patient's age to complete this topic
--- OUTSIDE RECORDS SUMMARY | 2024-09-26 08:54 | XMS_ITS | Patient Health Record ---
Author Organization [facility] Address [address] [facility] [address] [facility] [place] [address] Care Team Providers Care Program Coordinator For Residence Life Name Role Phone Samina Alexis MD Primary Care Provider Unavail able Sydnieyessenia Renetta Unavailable [phone] Allergies Allergen (clinical drug ingredient) Drug/Non Drug [...] Problem Status W/U Status Risk Notes Problem [id number] Hallux valgus (acquired), right foot (M20.11) Active confirmed Problem 565728580 Hammer toe of right foot (M20.41) Active confirmed Problem 395734240 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) Active confirmed Plan Of Treatment Pending Test Test Name Order Date X ray : Foot, right 3V 12/30/2022 Insurance Providers Payer Name Payer Address Payer Phone Subscriber Number Group Number Insured Name Patient Relationship to Insured Coverage Start Date Coverage End Date [facility] SCO Claims [address] [place] [id number] Bibi Gillespie Self - patient is the insured Medical (General) History Medical History History ICD Code Cholesterol Depression Bone implants/screws Constipation Vitamin D deficiency Carpal tunnel Allergic rhinitis Surgical History Surgery Date(Month/Year) B/L rotator cuff 2015,2017 x2 tubligation 1992
== END 2024-09-26 08:33 | disposition home or self-care (01) ==
LOC: HO.MAMMO 08:32
PROVIDERS: PCP Internal Medicine; Visit Provider Internal Medicine
DX: Z13.820 Encounter for screening for osteoporosis (principal); Z78.0 Asymptomatic menopausal state
CPT/HCPCS: 77080

== ENCOUNTER → 2024-09-26 08:45 | Outpatient (BNV) | payer OTHER, SELFPAY | PROVIDERS: PCP Internal Medicine; Visit Provider Radiology Diagnostic Radiology | DX: Z13.820 Encounter for screening for osteoporosis (principal); Z78.0 Asymptomatic menopausal state | CPT/HCPCS: 77080 ==

== ENCOUNTER 2024-09-27 08:28 | Outpatient (AMB) | payer OTHER, SELFPAY ==
--- NOTE | 2024-09-27 08:32 | MHC.PC.OV ---
Vital Signs 09/27/24 08:37 Height 5 ft 1 in Weight 175 lb BMI 33.1 BP 130/80 Blood Pressure Location Lt brachial Position Sitting Intake Visit Reasons: Annual Exam Intake Note: Patient here for an annual physical exam Maturity Checker Required: Yes Maturity Checker Language: Binder And Wrapper Packer Name: Samina Montes MD Information Interpreted: non-clinical & clinical Accompanied by: Self / Same As Patient Allergies acetaminophen [Percocet] Allergy (Intermediate, Verified 09/27/24 08:56) nausea,dizziness oxycodone [Percocet] Allergy (Intermediate, Verified 09/27/24 08:56) nausea,dizziness tramadol Allergy (Intermediate, Verified 09/27/24 08:56) dizziness sertraline Adverse Reaction (Severe, Verified 09/27/24 08:56) Dizziness Medication List - Last Reconciled 09/27/24 by Samina Montes MD arm brace (Wrist Brace Large) Use 1 wrist brace bilaterally once a day as needed atorvastatin 40 mg PO DAILY blood pressure monitor As directed bupropion HCl XL 150 mg PO QAM 90 days calcitriol mcg PO DAILY cholecalciferol (vitamin D3) 25 mcg PO DAILY 90 days loratadine 10 mg PO DAILY PRN 90 days sennosides (senna) mg PO DAILY Tobacco use date assessed: 09/27/24 Dental Screening Dental Screen Date: 09/27/24 Did you have a dental visit in the last 12 months?: No Did you have a dental problem in the last 6 months where you did not have access to dental care?: No Was dental information given to patient?: Patient has dentist HPI HPI Comments History of Present Illness Details The patient is a 59-year-old female presenting for her physical exam. She complaints of pain and locking of the fingers, suspected to be trigger finger. Symptoms occur primarily in the morning, manifesting as stiffness and difficulty moving the third and fourth fingers of the right hand. The patient reports some relief with the application of warmth, such as holding a hot cup of coffee. She has a history of shoulder problems, having undergone arthroscopy and repair of the left rotator cuff. The patient was informed she had colonic polyps following a colonoscopy conducted in March 2024, with a recommended follow-up in five years. She carries a family history of colon cancer, osteoporosis, and hypertension. - Last tetanus vaccine date unknown; advised to update vaccination status. - Pap smear performed this month with normal results. - Exercise recommended at 30 minutes, 5 days a week. - Diet discussed, with emphasis on reducing caloric intake and replacing sugary drinks with water or low-calorie alternatives. [facility] Medical History Hand pain Mild depression Obesity (BMI 30.0-34.9) Postmenopausal Tachycardia Carpal tunnel syndrome Allergic rhinitis Constipation by delayed colonic transit Dyslipidemia Shoulder pain Surgical History Hx of colonoscopy History of arthroscopy of right shoulder History of repair of left rotator cuff History of tubal ligation History of Family History Mother Hypertension Osteoporosis Arthritis Father No problems noted. Social History Household Members: Spouse Housing: House Alcohol intake: current Alcohol intake frequency: holidays/special occasions only Alcohol type: wine Patient Tobacco Use Status: Never used Tobacco e-Cigarette/Vaping Use: Never Used Second Hand Smoke Exposure: No service: No Current occupational status: disabled Sexual orientation: Straight/Heterosexual Gender identity: Female Cognitive needs: No Hearing needs: No Vision needs: No Questionnaire PHQ-9 Over the last 2 weeks, how often have you been bothered by any of the following problems? 1. Little interest or pleasure in doing things: several days 2. Feeling down, depressed, or hopeless: more than half the days 3. Trouble falling or staying asleep, or sleeping too much: several days 4. Feeling tired or having little energy: not at all 5. Poor appetite or overeating: more than half the days 6. Feeling bad about yourself - or that you are a failure or have let yourself or your family down: not at all 7. Trouble concentrating on things, such as reading the newspaper or watching television: not at all 8. Moving or speaking so slowly that other people could have noticed. Or the opposite - being so fidgety or restless that you have been moving around a lot more than usual: not at all 9. Thoughts that you would be better off or of hurting yourself in some way: not at all Total score: 6 Depression Screening Interpretation: Positive Depression Screening Follow-up: Existing condition, In treatment and Follow-up Visit Requested Depression Screening Done: Yes 37444 - PHQ-9 Billing: Yes Source: Developed by Drs. Luc Regalado, Sharon Jay, Jonatan Guevara and colleagues, with an educational anastacio from [employer]. Thrive Questionnaire Date Thrive assessed: 09/27/24 I am a: Patient What is your living situation today?: I have a steady place to live Within the past 12 months, did the food you bought not last and you didn't have the money to get more?: I choose not to answer this question Within the past 12 months, did you worry whether your food would run out before you got money to buy more?: I choose not to answer this question Do you have trouble paying for medicines?: No Do you have trouble getting transportation to medical appointments?: No Do you have trouble paying your heating and electricity bill?: I choose not to answer this question Do you have trouble taking care of your child, family member or friend?: I choose not to answer this question Do you have trouble with day-to-day activities such as bathing, preparing meals, shopping, managing finances, etc.?: I choose not to answer this question Are you currently unemployed and looking for a job?: I choose not to answer this question Are you interested in more education?: No Please select the resources that you would like help with: None Currently or been in a relationship where the following occur: I choose not to answer THRIVE Score: 0 AUDIT C Alcohol Use Questionnaire (AUDIT-C) 1. How often do you have a drink containing alcohol?: Monthly or less 2. How many drinks containing alcohol do you have on a typical day when you are drinking?: 1 or 2 3. How often do you have six or more drinks on one occasion?: Never Total Score: 1 Score Reviewed/Action Taken: No ABHIJIT-7 AMB Questionnaire ABHIJIT-7 Date ABHIJIT - 7 assessed: 09/27/24 Feeling nervous, anxious, or on edge: 1 = Several days Not being able to stop or control worryin = Not at all Worrying too much about different things: 0 = Not at all Trouble relaxin = Several days Being so restless that it is hard to sit still: 1 = Several days Becoming easily annoyed or irritable: 0 = Not at all Feeling afraid as if something awful might happen: 0 = Not at all Total ABHIJIT-7 score (0-4 normal; 5-9 mild; 10-14 moderate; 15-21 severe): 3 Source: Developed by Drs. Luc Regalado, Sharon Jay, Jonatan Guevara and colleagues, with an educational anastacio from [employer]. ABHIJIT-7 Assessment Billing ABHIJIT-7 Assessment Tool: ABHIJIT-7 Assessment 21851 Review of Systems Const All systems reviewed & are unremarkable except as noted in HPI and below Card Denies chest pain at rest, Denies chest pain with activity, Denies edema, Denies irregular heart rhythm, Denies claudication, Denies dyspnea, Denies dyspnea on exertion, Denies orthopnea, Denies paroxysmal nocturnal dyspnea and Denies slow heart rate Resp Denies cough, Denies dyspnea and Denies dyspnea on exertion GI Denies abdominal pain, Denies change in bowel habits, Denies excessive flatus, Denies nausea and Denies vomiting Denies urinary incontinence, Denies urinary hesitancy and Denies urinary urgency Musc Denies abnormal gait, Denies atrophy, Denies deformity and Denies limited range of motion Skin/Breast Denies bleeding lesions, Denies changing lesions and Denies rash Neuro Denies abnormal gait and Denies lack of coordination Physical exam (Primary Care) Vital Signs: Last Vital Signs BP 130/80 09/27/24 08:37 BMI result Body Mass Index 33.1 BMI Assessment/Plan discussion: High BMI High, discussed plan: lifestyle, weight reduction, dietary and physical activity Tobacco/Smoking Status: Tobacco use Status Tobacco use date assessed 09/27/24 09/27/24 08:40 Patient Tobacco Use Status Never used Tobacco 09/27/24 08:34 e-Cigarette/Vaping Use Never Used 09/27/24 08:34 PHQ-9: PHQ-9 Score PHQ-9: Total score 6 09/27/24 10:34 Depression Screening Interpretation: Positive Depression Screening Follow-up: Existing condition, In treatment and Follow-up Visit Requested Thrive Assessment: Date of Thrive Assessment Date Thrive assessed 09/27/24 09/27/24 08:34 Currently or been in a relationship where the following occur: I choose not to answer HENMT Head: Yes normal to inspection, Yes normocephalic and Yes atraumatic Ears: external ears normal Eyes General: appearance normal, both eyes and all related structures Eyelids: Yes eyelids normal Conjunctivae: conjunctivae normal Neck Neck: Yes normal visual inspection and Yes supple Resp Effort & Inspection: normal respiratory effort Auscultation: clear to auscultation bilaterally Cardio Jugular venous distension: no JVD Rate: regular rate Rhythm: regular rhythm Heart sounds: S1 normal heart sound present and S2 normal heart sound present GI Inspection: Yes normal to inspection Palpation (GI): Soft to palpation and nontender Auscultation: normal bowel sounds Skin General skin exam: no rashes or lesions noted Neuro General: no focal motor deficits Extrem General: Yes full ROM Psych Appearance: grossly normal Office Procedures Flu Questionnaire Does the patient have a severe egg allergy?: No Immunizations Fluarix Triv [id number] (PF) 45 mcg (15 mcg x 3)/0.5 mL IM syringe Performing Provider: Samina Montes MD Performing Location: [facility] Documented (not given) by: FLORA Chi on 09/27/24 08:46 Reason Not Given: Patient Refused Boostrix Tdap 2.5 Lf unit-8 mcg-5 Lf/0.5 mL intramuscular syringe Performing Provider: Samina Montes MD Performing Location: [facility] Administered by: FLORA Chi on 09/27/24 09:10 Dose Route Admin Location Dispensed Lot Number Expiration Date [facility] [employer] 0.5 mL IM Left Deltoid 0.5 mL [id number] 11/15/26 36823-755-75 [employer] VIS Given Date VIS Provided VIS Publication Date 09/27/24 Single Vaccine 21 Eligibility Eligibility Date Funding Source Not [facility] Eligible 09/27/24 Private Coding Level of Care Code Est Pt Level 3 (63697) Est Pt Prev Care 40-64y(64404) Diagnoses Physical exam Z00.00 Mild major depression F32.0 Right hand pain M79.641 Additional Codes ABHIJIT-7 Assessment Billing - ABHIJIT-7 Assessment Tool: ABHIJIT-7 Assessment 53886 ([id number]) PHQ-9 - 02380 - PHQ-9 Billing: Yes ([id number]) Time Spent (min) 33 Assessment & Plan Assessment & Plan (1) Physical exam: Code(s): Z00.00 - Encounter for general adult medical examination without abnormal findings Category: Medical (2) Mild major depression: Code(s): F32.0 - Major depressive disorder, single episode, mild Category: Medical (3) Right hand pain: Code(s): M79.641 - Pain in right hand Category: Medical Plan - Recommend consulting orthopedics for further evaluation and potential injection therapy for trigger finger. - Follow-up on pending densitometry results for osteoporosis screening. - Encourage adherence to a low-calorie diet and regular exercise regime. - Allergy review and management: Omit sertraline, manage pain with non-opioid alternatives. - Recommend updating vaccinations, including tetanus booster if not current. Patient was informed and verbally consented to the use of an ambient scribe for clinic note documentation during this visit. I reviewed with the patient her diagnosis of triggering finger and the potential need for orthopedic evaluation, including possible injection therapy. We discussed the significance of managing her health proactively through diet and exercise due to her family history of osteoporosis and hypertension. The importance of routine screenings, such as the recent colonoscopy and densitometry, was reiterated. We addressed her medication allergies and emphasized avoiding them in future prescriptions. Allergy-induced complications and the role of alternative therapies were discussed. Orders: Orders Influenza [id number] Immunization Today Z23 - Encounter for immunization TDaP Immunization Today Z23 - Encounter for immunization Referrals Orthopedics Referral M79.641 - Pain in right hand Medications: Refilled cholecalciferol (vitamin D3) 25 mcg PO DAILY 90 caps 2RF 90 days Patient Instructions: - Follow up with orthopedic clinic for possible injection for finger locking. - Await results from densitometry for further guidance. - Update your tetanus vaccination as needed. - Maintain a diet low in calories and increase water intake. - Engage in physical activities regularly, aiming for 30 minutes, five days a week. - Do not take oxycodone, tramadol, or sertraline; report any new allergies. - Use heat therapy on fingers as needed for stiffness relief.
[2024-09-27 08:37] VITALS: BP 130/80; BMI 33.1
== END 2024-09-27 09:13 | disposition home or self-care (01) ==
PROVIDERS: PCP Internal Medicine; Visit Provider Internal Medicine
DX: Z00.00 Encounter for general adult medical examination without abnormal findings (principal); F32.0 Major depressive disorder, single episode, mild; M79.641 Pain in right hand; Z23 Encounter for immunization

== ENCOUNTER → 2024-09-27 08:28 | Outpatient (BNVA) | payer OTHER, SELFPAY | PROVIDERS: PCP Internal Medicine; Visit Provider Internal Medicine | DX: Z00.00 Encounter for general adult medical examination without abnormal findings (principal); Z23 Encounter for immunization; F32.0 Major depressive disorder, single episode, mild; M79.641 Pain in right hand | CPT/HCPCS: 90471; 90715; 96127; 99212; 99396 ==

== ENCOUNTER 2024-10-27 07:59 | Outpatient (REF) | payer OTHER, SELFPAY ==
--- OUTSIDE RECORDS SUMMARY | 2024-10-27 08:04 | XMS_ITS | Patient Health Record ---
[facility] Address [address] [place] [address] Care Team Providers Care Assistant Hvac Mechanic Name Role Phone Samina Alexis MD Primary Care Provider Unavail able Sydnieyessenia Renetta Unavailable [phone] Allergies Allergen (clinical drug ingredient) Drug/Non Drug [...] Problem Status W/U Status Risk Notes Problem [id number] Hallux valgus (acquired), right foot (M20.11) Active confirmed Problem [id number] Hammer toe of right foot (M20.41) Active confirmed Problem [id number] 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) Active confirmed Plan Of Treatment Pending Test Test Name Order Date X ray : Foot, right 3V 12/30/2022 Insurance Providers Payer Name Payer Address Payer Phone Subscriber Number Group Number Insured Name Patient Relationship to Insured Coverage Start Date Coverage End Date [facility] [employer] Claims [address] [place] [id number] Bibi Gillespie Self - patient is the insured Medical (General) History Medical History History ICD Code Cholesterol Depression Bone implants/screws Constipation Vitamin D deficiency Carpal tunnel Allergic rhinitis Surgical History Surgery Date(Month/Year) B/L rotator cuff 2015,2017 x2 tubligation 1992
--- OUTSIDE RECORDS SUMMARY | 2024-10-27 08:04 | XMS_ITS | Clinical Summary ---
Author Organization [employer] Address [address] [place] [address] Care Team Providers Care Business Project Analyst Name Role Phone Unavailable Primary Care Provider [...] Cancer Screening 1997 HPV/Cotest 1997 Mammogram 2007 Pneumococcal Vaccine: 50+ Years (1 of 1 - PCV) 2017 COVID-19 Vaccine ( season) 2024 10/01/2022, 11/07/2021, [...] 5 Years) and At-Risk Patients (6 to 49) Years) Aged Out No longer eligible based on patient's age to complete this topic RSV under 20 months Aged Out No longe r eligible based on patient's age to complete this topic Rotavirus Vaccines Aged Out No longer eligible based on patient's age to complete this topic
== END 2024-10-27 08:00 | disposition home or self-care (01) ==
LOC: HO.HOSX 07:59
DX: Z13.89 Encounter for screening for other disorder (principal)

== ENCOUNTER 2025-03-27 08:04 | Outpatient (AMB) | payer OTHER, SELFPAY ==
--- NOTE | 2025-03-27 08:11 | MHC.PC.OV ---
Vital Signs 03/27/25 08:12 Height 5 ft 1 in Weight 173 lb BMI 32.7 BP 124/72 Blood Pressure Location Lt brachial Position Sitting Intake Visit Reasons: depression Intake Note: Patient here for a follow up Depression Complex Director Required: No Accompanied by: Self / Same As Patient Allergies acetaminophen (Percocet) Allergy (Intermediate, Verified 03/27/25 08:32) nausea,dizziness oxycodone (Percocet) Allergy (Intermediate, Verified 03/27/25 08:32) nausea,dizziness tramadol Allergy (Intermediate, Verified 03/27/25 08:32) dizziness sertraline Adverse Reaction (Severe, Verified 03/27/25 08:32) Dizziness Medication List - Last Reconciled 03/27/25 by Samina Montes MD arm brace (Wrist Brace Large) Use 1 wrist brace bilaterally once a day as needed atorvastatin 40 mg PO DAILY blood pressure monitor As directed bupropion HCl XL 150 mg PO QAM 90 days cholecalciferol (vitamin D3) 25 mcg PO DAILY 90 days loratadine 10 mg PO DAILY PRN 90 days sennosides (senna) 8.6 mg PO DAILY Tobacco use date assessed: 09/27/24 Dental Screening Dental Screen Date: 03/27/25 Did you have a dental visit in the last 12 months?: No Did you have a dental problem in the last 6 months where you did not have access to dental care?: No Was dental information given to patient?: Patient has dentist HPI HPI Comments History of Present Illness Details The patient is a 60-year-old female presenting for a follow-up on chronic conditions. She reports osteoarthritis affecting her shoulders and hands, with symptoms described as horrible and causing significant discomfort. The condition has progressed to the point where she is considering surgical options, although she is hesitant about undergoing surgery. The patient also has chronic spondylosis in the lumbar spine, specifically at levels L2-L3, L3-L4, and L4-L5, which was identified in imaging conducted in July. She experiences symptoms consistent with sciatica, affecting her right foot, and has been advised that exercises may help alleviate the symptoms. She has a history of allergies to Percocet, Tramadol, and Sertraline, which cause dizziness. Her current medications include atorvastatin for hyperlipidemia, bupropion for depression, vitamin D supplements, loratadine for allergies, and senna for constipation. Preventative care measures include a normal bone densitometry, a Pap smear, and an upcoming mammography scheduled for May. [facility] Medical History Hand pain Mild depression Obesity (BMI 30.0-34.9) Postmenopausal Tachycardia Carpal tunnel syndrome Allergic rhinitis Constipation by delayed colonic transit Dyslipidemia Shoulder pain Surgical History Hx of colonoscopy History of arthroscopy of right shoulder History of repair of left rotator cuff History of tubal ligation History of Family History Mother Hypertension Osteoporosis Arthritis Father No problems noted. Social History Household Members: Spouse Housing: House Alcohol intake: current Alcohol intake frequency: holidays/special occasions only Alcohol type: wine Patient Tobacco Use Status: Never used Tobacco e-Cigarette/Vaping Use: Never Used Second Hand Smoke Exposure: No service: No Current occupational status: disabled Sexual orientation: Straight/Heterosexual Gender identity: Female Cognitive needs: No Hearing needs: No Vision needs: No Questionnaire Thrive Questionnaire Date Thrive assessed: 09/27/24 I am a: Patient What is your living situation today?: I have a steady place to live Within the past 12 months, did the food you bought not last and you didn't have the money to get more?: I choose not to answer this question Within the past 12 months, did you worry whether your food would run out before you got money to buy more?: I choose not to answer this question Do you have trouble paying for medicines?: No Do you have trouble getting transportation to medical appointments?: No Do you have trouble paying your heating and electricity bill?: I choose not to answer this question Do you have trouble taking care of your child, family member or friend?: I choose not to answer this question Do you have trouble with day-to-day activities such as bathing, preparing meals, shopping, managing finances, etc.?: I choose not to answer this question Are you currently unemployed and looking for a job?: I choose not to answer this question Are you interested in more education?: No Please select the resources that you would like help with: None Currently or been in a relationship where the following occur: I choose not to answer THRIVE Score: 0 ABHIJIT-7 AMB Questionnaire ABHIJIT-7 Date ABHIJIT - 7 assessed: 09/27/24 Source: Developed by Drs. Luc Regalado, Sharon Jay, Jonatan Guevara and colleagues, with an educational anastacio from [employer]. Review of Systems Const All systems reviewed & are unremarkable except as noted in HPI and below Card Denies chest pain at rest, Denies chest pain with activity, Denies edema, Denies irregular heart rhythm, Denies claudication, Denies dyspnea, Denies dyspnea on exertion, Denies orthopnea, Denies paroxysmal nocturnal dyspnea and Denies slow heart rate Resp Denies cough, Denies dyspnea and Denies dyspnea on exertion GI Denies abdominal pain, Denies change in bowel habits, Denies excessive flatus, Denies nausea and Denies vomiting Denies urinary incontinence, Denies urinary hesitancy and Denies urinary urgency Musc Denies atrophy, Denies deformity, Reports arthralgias and Denies limited range of motion Physical exam (Primary Care) Vital Signs: Last Vital Signs BP 124/72 03/27/25 08:12 BMI result Body Mass Index 32.7 BMI Assessment/Plan discussion: High BMI High, discussed plan: lifestyle, weight reduction, dietary and physical activity Tobacco/Smoking Status: Tobacco use Status Tobacco use date assessed 09/27/24 03/27/25 08:16 Patient Tobacco Use Status Never used Tobacco 03/27/25 08:16 e-Cigarette/Vaping Use Never Used 03/27/25 08:16 Thrive Assessment: Date of Thrive Assessment Date Thrive assessed 09/27/24 03/27/25 08:16 Currently or been in a relationship where the following occur: I choose not to answer Resp Effort & Inspection: normal respiratory effort Auscultation: clear to auscultation bilaterally Cardio Jugular venous distension: no JVD Rate: regular rate Rhythm: regular rhythm Heart sounds: S1 normal heart sound present and S2 normal heart sound present Extrem General: Yes full ROM Coding Level of Care Code Est Pt Level 4 (98121) Complex EM visit Add On G2211 Diagnoses Mild major depression F32.0 ABHIJIT (generalized anxiety disorder) F41.1 Dyslipidemia E78.5 Hypovitaminosis D E55.9 Seasonal allergic rhinitis due to pollen J30.1 Allergic rhinitis trigger: pollen Allergic rhinitis seasonality: seasonal Constipation by delayed colonic transit K59.01 Time Spent (min) 22 Assessment & Plan Assessment & Plan (1) Mild major depression: Code(s): F32.0 - Major depressive disorder, single episode, mild Category: Medical (2) ABHIJIT (generalized anxiety disorder): Code(s): F41.1 - Generalized anxiety disorder Category: Medical (3) Dyslipidemia: Code(s): E78.5 - Hyperlipidemia, unspecified Category: Medical (4) Hypovitaminosis D: Code(s): E55.9 - Vitamin D deficiency, unspecified Category: Medical (5) Allergic rhinitis: Code(s): J30.9 - Allergic rhinitis, unspecified Category: Medical Qualifiers: Allergic rhinitis trigger: pollen Allergic rhinitis seasonality: seasonal Qualified Code(s): J30.1 - Allergic rhinitis due to pollen (6) Constipation by delayed colonic transit: Code(s): K59.01 - Slow transit constipation Category: Medical Plan The plan includes managing osteoarthritis symptoms with conservative measures and considering surgical options if necessary, while addressing the patient's hesitancy towards surgery. For chronic spondylosis and sciatica, the patient is advised to engage in exercises that may alleviate symptoms, with follow-up imaging to monitor progression. Allergy management involves avoiding known allergens and monitoring for dizziness with current medications. Preventative care will continue with scheduled mammography and routine blood work to monitor cholesterol, vitamin D, glucose, renal, and liver function in September. Patient was informed and verbally consented to the use of an ambient scribe for clinic note documentation during this visit. Orders: Orders Lipid Panel 7 Months E78.5 - Hyperlipidemia, unspecified Vitamin D 25-OH Total 7 Months E55.9 - Vitamin D deficiency, unspecified Comprehensive [place]. Panel Fast 7 Months M54.12 - Radiculopathy, cervical region
[2025-03-27 08:12] VITALS: BP 124/72; BMI 32.7
== END 2025-03-27 08:44 | disposition home or self-care (01) ==
LOC: HO.HMCH 08:05
PROVIDERS: PCP Internal Medicine; Visit Provider Internal Medicine
DX: F32.0 Major depressive disorder, single episode, mild (principal); F41.1 Generalized anxiety disorder; E78.5 Hyperlipidemia, unspecified; E55.9 Vitamin D deficiency, unspecified; J30.1 Allergic rhinitis due to pollen; K59.01 Slow transit constipation

== ENCOUNTER → 2025-03-27 08:04 | Outpatient (BNVA) | payer OTHER, SELFPAY | PROVIDERS: PCP Internal Medicine; Visit Provider Internal Medicine | DX: F32.0 Major depressive disorder, single episode, mild (principal); F41.1 Generalized anxiety disorder; E78.5 Hyperlipidemia, unspecified; E55.9 Vitamin D deficiency, unspecified; J30.1 Allergic rhinitis due to pollen; K59.01 Slow transit constipation | CPT/HCPCS: 99212 ==

== ENCOUNTER 2025-06-16 08:17 | Outpatient (REF) | payer OTHER, SELFPAY ==
--- NOTE | ~2025-06-16 | MM_ITS ---
EXAMINATION: MM SCREENING DIGITAL BREAST TOMOSYNTHESIS, BILATERAL CLINICAL INFORMATION: Screening. Asymptomatic. COMPARISON: Mammography: Comparison is made with available priors TECHNIQUE: Digital breast mammography with tomosynthesis is performed in both the craniocaudal and mediolateral oblique views along with computer-aided detection (CAD). FINDINGS: There are scattered areas of fibroglandular density. There are no significant masses, abnormal calcifications, or other abnormalities. MM/MM tomosynthesis screening BI IMPRESSION: No mammographic evidence of malignancy. ASSESSMENT: BI-RADS Category 1: Negative RECOMMENDATION: Routine annual mammography screening. 1 year F/U This examination should not preclude the clinical evaluation of a suspicious palpable abnormality. This patient's information was entered into a reminder system with a target due date for their next mammogram. Electronically signed by: Meg Hidalgo DO 06/19/2025 09:44 AM EDT
--- OUTSIDE RECORDS SUMMARY | 2025-06-16 08:20 | XMS_ITS | Clinical Summary ---
Author Organization [employer] Address [address] [place] [address] Care Team Providers Care Head Girls Golf Coach Name Role Phone Unavailable Primary Care Provider Unavailabl e Allergies Active Allergy Reactions Criticality Noted Date Comments Oxycodone-Acetaminophen Nausea 01/25/2025 Tramadol Nausea 01/25/2025 Medications buPROPion (Zyban) 150 MG 12 hr tablet 1 tablet in the morning. Active atorvastatin (Lipitor) 40 MG tablet Take 40 mg by mouth Once per day. Active D3-1000 25 MCG (1000 UT) capsule Take 1 capsule by mouth Once per day. 12/29/2024 Active ibuprofen 800 MG tablet TAKE 1 TABLET BY MOUTH THREE TIMES DAILY NEEDED FOR FEVER OR PAIN Active LORATADINE PO Take by mouth. 09/30/2017 Active Active Problems No known active problems Encounters Date Type Department Care Team Description 05/11/2025 8:00 AM EDT Office Visit [facility] [address] [place] [address] Luis Corona DDS from Last 3 Months Immunizations Immunization Administration Dates Next Due Moderna Covid-19 Vaccine 6+ Bivalent 10/01/2022 Social History Tobacco Use Types Packs/Day Years Used Date Smoking Tobacco: Unknown Tobacco Cessation:Counseling Given: Not Answered Alcohol Use Standard Drinks/Week Comments Defer 0 (1 standard drink = 0.6 oz pur e alcohol) Comments Unknown Sex and Gender Information Value Date Recorded Sex Assigned at Female 06/29/2022 10:14 AM EDT Legal Sex Female 10:14 AM EDT Gender Identity Female 06/29/2022 10:14 AM EDT Sexual Orientation Straight 06/29/2022 10 :14 AM EDT Last Filed Vital Signs Vital Sign Reading Time Taken Comments Blood Pressure 118/70 05/11/2025 8:11 AM EDT Pulse - - Temperature - - Respiratory Rate - - Oxygen Saturation - - Inhaled Oxygen Concentration - - Weight - - Height - - Body Mass Index - - Plan of Treatment Health Maintenance Due Date Last Done Comments CT Colonography 1967 Colonoscopy 1967 Colorectal Cancer Screening 1967 Depression Screening 1967 FIT DNA/Cologuard 1967 FIT 1967 FOBT 1967 HIV Screening 1967 SDOH Screening 1967 Sigmoidoscopy 1967 Disability Screening 1967 Alcohol/Substance Use Screening 1979 Hepatitis C Screening 1985 Hepatitis B Vaccines (1 of 3 - 19+ 3-dose series) 1986 Pap Smear 02/20/1988 Cervical Cancer Screening 1997 HPV/Cotest 1997 Mammogram 2007 Pneumococcal Vaccine: 50+ Years (1 of 1 - PCV) 2017 COVID-19 Vaccine ( - season) 2025 10/01/2022, 11/07/2021, 02/17/2021, Additional history exists Influenza Vaccine (#1) 2025 Dental Oral Exam 07/29/2025 01/25/2025 Dental Prophylaxis 07/29/2025 01/25/2025 Dental X-Ray: Bitewings 01/26/2026 01/25/2025 Tobacco Screening 05/11/2026 05/11/2025 Dental X-Ray: Full Mouth 01/27/2028 01/25/2025 DTaP/Tdap/Td Vaccines (2 - Td or Tdap) 09/27/2034 09/27/2024 RSV Patients and Patients Aged 60 years [...] patient's age to complete this topic Meningococcal B Vaccine Aged Out No l onger eligible based on patient's age to complete this topic Meningococcal Vaccine Aged Out No lashonda isidoro eligible based on patient's age to complete this topic RSV under 20 months Aged Out No longe r eligible based on patient's age to complete this topic Rotavirus Vaccines Aged Out No longer eligible based on patient's age to complete this topic Procedures Procedure Name Priority Date/Time Associated Diagnosis Comments 29 O RESIN-BASED COMPOSITE - 1 SURF, POSTERIOR Routine 05/11/2025 8:00 AM EDT CASE PRESENTATION, DETAILED AND EXTENSIVE TREATMENT PLANNING Routine 05/11/2025 8:00 AM EDT PROPHYLAXIS - ADULT Routine 01/25/2025 8 :00 AM EDT INTRAORAL - COMPLETE SERIES OF RADIOGRAPHIC IMAGES Routine 01/25/2025 8:00 AM EDT COMPREHENSIVE ORAL EVALUATION - NEW OR ESTABLISHED PATIENT Routine 01/25/2025 8:00 AM EDT from Last 3 Months or Most Recently Relevant to Health Maintenance Insurance [facility]
--- OUTSIDE RECORDS SUMMARY | 2025-06-16 08:20 | XMS_ITS | Patient Health Record ---
Author [facility] Address [address] [facility] [place] [address] Care Team Providers Care Deicer Kit Assembler Name Role Phone Samina Alexis MD Primary Care Provider Unavail able Reina Renetta Unavailable [phone] Allergies Allergen (clinical drug ingredient) Drug/Non Drug Allergy documented on EMR Reaction Allergy Type Onset Date Status acetaminophen / oxycodone Percocet dizziness,nause a Drug Allergy Active tramadol traMADol HCl dizziness,nause a Drug Allergy Active Reason For Referral No Information Medications Medication SIG (Take, Route, Frequency, Duration) Notes Start Date End Date Status Feldene 20 MG 1 capsule with food Orally Once a day; Duration: 30 day(s) 12/30/2022 Active Custom Orthotics as [...] Problem Status W/U Status Risk Notes Problem Acquired hallux valgus (38195873) Hallux valgus (acquired), right foot (M20.11) Active confirmed Problem Acquired hammer toe of right foot (4408854551174434 ) Hammer toe of right foot (M20.41) Active confirmed Problem 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) Active confirmed Plan Of Treatment Pending Test Test Name Order Date X ray : Foot, right 3V 12/30/2022 Insurance Providers Payer Name Payer Address Payer Phone Subscriber Number Group Number Insured Name Patient Relationship to Insured Coverage Start Date Coverage End Date [facility] [employer] Claims [address] [place] [id number] Bibi Gillespie Self - patient is the insured Medical (General) History Medical History History ICD Code Cholesterol Depression Bone implants/screws Constipation Vitamin D deficiency Carpal tunnel Allergic rhinitis Surgical History Surgery Date(Month/Year) B/L rotator cuff 2015,2017 x2 tubligation 1992
== END 2025-06-16 08:18 | disposition home or self-care (01) ==
LOC: HO.MAMMO 08:17
PROVIDERS: PCP Internal Medicine; Visit Provider Internal Medicine
DX: Z12.31 Encounter for screening mammogram for malignant neoplasm of breast (principal)
CPT/HCPCS: 77063; 77067

== ENCOUNTER → 2025-06-16 08:30 | Outpatient (BNV) | payer OTHER, SELFPAY | PROVIDERS: PCP Internal Medicine; Visit Provider Internal Medicine | DX: Z12.31 Encounter for screening mammogram for malignant neoplasm of breast (principal) | CPT/HCPCS: 77063; 77067 ==